=== PATIENT | female | born 1990 | race Caucasian/White ===

== ENCOUNTER 2017-11-16 14:06 | Emergency (ER) | payer OTHER ==
[2016-12-26 11:40] VITALS: BP 154/118
[~2017-11-16 14:06] MED LIST: CYCL10TA2 PO; NAPR-683 PO; TRAM50TA PO
== END 2017-11-16 14:55 | disposition left against medical advice (07) ==
LOC: ER 14:06
DX: M79.89 Other specified soft tissue disorders (principal); Z53.21 Procedure and treatment not carried out due to patient leaving prior to being seen by health care provider

== ENCOUNTER 2017-12-24 13:34 | Emergency (ER) | payer OTHER ==
[~2017-12-24] VITALS: Ht 157.5 cm; Wt 72.6 kg
[2017-12-24 14:25] LABS: BILIRUBIN,URINE NEGATIVE (NEG); CLARITY,URINE CLEAR; COLOR,URINE YELLOW; NITRITE,URINE NEGATIVE (NEG); PROTEIN,URINE NEGATIVE (NEG-TRACE); UROBILINOGEN,URINE 0.2 mg/dL (0.2 mg/dL)
[2017-12-24 14:41] LABS: BACTERIA,URINE FEW /HPF (0-FEW); SQUAMOUS EPITHELIAL CELL,UR MANY /LPF; WBC,URINE OCC /HPF (0-4)
--- NOTE | 2017-12-24 14:46 | PHYS DOC ---
Past Medical History Past Medical History: Hypertension, IBS, Other Additional Past Medical Histor: IBS, ovarian cyst Past Surgical History: Cholecystectomy, , Tubal ligation Alcohol Use: None Drug Use: None Adult General Chief Complaint Chief Complaint: ABDOMINAL PAIN HPI HPI Patient is a 27 year old female who presents with pelvic pain. Patient has been having intermittent stabbing pelvic pain over the last couple of days. She also noticed some yellow vaginal discharge that is not normal. Her last menstrual period was 2 weeks earlier. She does have a prior history of ovarian cysts. She is status post bilateral tubal ligation. No fever or chills. Denies urinary symptoms. No new sexual partners. No back or flank pain. Review of Systems Review of Systems Constitutional: Denies fever Eyes: Denies HENT: Denies Respiratory: Denies SOB Cardiovascular: No additional information GI: Denies abdominal pain : Denies dysuria or hematuria Musculoskeletal: Denies back pain Integument: Denies rash or skin lesions Neurologic: Denies headache All other systems were reviewed and found to be within normal limits, except as documented in this note. Current Medications Current Medications Current Medications Medications (Trade) Dose Ordered Sig/[place] Start Time Stop Time Status Last Admin Dose Admin Acetaminophen/ Butalbital/ Caffeine (Fioricet) 2 tab PRN Q6HRS PRN 12/24/17 15:45 Allergies Allergies Allergies Coded Allergies Type Severity Reaction Last Updated Verified morphine Allergy Intermediate HIVES 09/14/15 Yes Physical Exam Physical Exam Constitutional: Well developed, well nourished, no acute distress, non-toxic appearance HENT: Normocephalic, atraumatic, bilateral external ears normal, oropharynx moist Eyes: PERRLA, EOMI Neck: Normal range of motion, no tenderness Cardiovascular:Heart rate regular rhythm, no murmur Lungs & Thorax: Bilateral breath sounds clear to auscultation Abdomen: Bowel sounds normal, soft, mild tenderness to palpation over the suprapubic area. Skin: Warm, dry, no erythema Back: No tenderness, no CVA tenderness. Neurologic: Alert and oriented X 3 Psychologic: Affect normal Pelvic: normal female external genitalia, cervix is closed. small amt of discharged present in the vault. No cervical motion or adnexal tenderness. No adnexal masses. Current Patient Data Vital Signs Vital Signs Date Time Temp Pulse Resp B/P (MAP) Pulse Ox O2 Delivery O2 Flow Rate FiO2 12/24/17 13:49 98.2 81 20 145/87 (106) 98 Room Air 98.2 Lab Values Laboratory Tests Test 12/24/17 13:50 Urine Collection Type Unknown Urine Color Yellow Urine Clarity Clear Urine pH 6.0 Urine Specific [place] >=1.030 Urine Protein Negative mg/dL (NEG-TRACE) Urine Glucose (UA) Negative mg/dL (NEG) Urine Ketones (Stick) Negative mg/dL (NEG) Urine Blood Moderate (NEG) Urine Nitrite Negative (NEG) Urine Bilirubin Negative (NEG) Urine Urobilinogen Dipstick 0.2 mg/dL (0.2 mg/dL) Urine Leukocyte Esterase Negative (NEG) Urine RBC 1-2 /HPF (0-2) Urine WBC Occ /HPF (0-4) Urine Squamous Epithelial Cells Many /LPF Urine Bacteria Few /HPF (0-FEW) Urine Mucus Mod /LPF Microbiology 12/24/17 Wet Prep - Final, Complete EKG EKG [] Radiology/Procedures Radiology/Procedures [] Course & Med Decision Making Course & Med Decision Making Pertinent Labs and Imaging studies reviewed. (See chart for details) Patient is evaluated for pelvic pain in the emergency department. Pelvic exam was completed and documented above. Examination was accompanied by a female nursing professor. Her wet prep did return positive for clue cells. I discussed with the patient the option of empiric STD treatment but the patient is adamant that she has no concerns about STD based on her sexual history. Also, on her physical exam she had no cervical motion tenderness. Patient opts to have treatment only for bacterial vaginosis at this time. Also based on her physical exam, I did not see an urgent need to perform ultrasound today. No concern for torsion based on physical. Patient is discharged home with Flagyl. She is advised that she will be notified if any of her testing is positive. She is specifically advised to avoid alcohol while taking Flagyl. All of her questions are answered prior to discharge and she is agreeable to the plan of care. Dragon Disclaimer Dragon Disclaimer This electronic medical record was generated, in whole or in part, using a voice recognition dictation system. Departure Departure Referrals: MINNIE DENT (PCP) Scripts Metronidazole (FLAGYL) 500 Mg Tablet 1 TAB PO BID, #14 TAB Prov: JAME TAN DO 12/24/17 JAME TAN DO Dec 24, 2017 14:46
[2017-12-24] MEDS ORDERED: METR500T PO (15:39)
[2017-12-24 15:45] VITALS: BP 140/76
[2017-12-24] MEDS ORDERED: BUTALB/APAP/CAFEIN 50/325/40MG TABLET. PO PRN (15:45)
[2017-12-24] MEDS ORDERED: IBUP-1060 PO (16:19)
[2017-12-24] MEDS ORDERED: HYDR-971 PO (16:19)
[2017-12-25 14:29] LABS: GC PROBE Negative (Negative)
== END 2017-12-24 16:31 | disposition home or self-care (01) ==
LOC: ER 13:34
DX: R10.2 Pelvic and perineal pain (principal); N89.8 Other specified noninflammatory disorders of vagina; I10 Essential (primary) hypertension; K58.9 Irritable bowel syndrome, unspecified; Z90.49 Acquired absence of other specified parts of digestive tract; Z98.51 Tubal ligation status; Z88.5 Allergy status to narcotic agent
CPT/HCPCS: 81001; 81025; 87491; 87591; 99284; Q0111

== ENCOUNTER 2018-01-06 22:38 | Emergency (ER) | payer OTHER ==
[~2018-01-06] VITALS: Ht 157.5 cm; Wt 72.6 kg
[~2018-01-06 22:38] MED LIST changes: +HYDR-3164 PO; +IBUP-1060 PO; +METR500T PO
[2018-01-06 23:03] LABS: BILIRUBIN,URINE NEGATIVE (NEG); CLARITY,URINE TURBID; COLOR,URINE YELLOW; NITRITE,URINE NEGATIVE (NEG); PROTEIN,URINE NEGATIVE (NEG-TRACE); UROBILINOGEN,URINE 0.2 mg/dL (0.2 mg/dL)
[2018-01-06 23:18] LABS: BACTERIA,URINE MODERATE /HPF (0-FEW); SQUAMOUS EPITHELIAL CELL,UR MANY /LPF
[2018-01-06] MEDS ORDERED: HYDROcodone/APAP 5/325MG 1 TAB TABLET PO ONE (23:30)
[2018-01-07] MEDS ORDERED: CIPR250T30 PO (00:28)
[2018-01-07 00:30] VITALS: BP 155/89
--- NOTE | 2018-01-07 05:40 | PHYS DOC ---
Past Medical History Past Medical History: Hypertension, IBS, Other Additional Past Medical Histor: IBS, ovarian cyst Past Surgical History: Cholecystectomy, , Tubal ligation Additional Past Surgical Histo: X 3 Alcohol Use: None Drug Use: None Adult General Chief Complaint Chief Complaint: FLANK PAIN HPI HPI Patient is a 27 year old female with history of recurrent urinary tract infections who presents with right flank pain, urinary frequency urgency past the past 3 days. No fever chills, nausea vomiting sweats. Last menstrual period was 3 weeks ago. No history of kidney stones. No other symptoms or complaints[] Review of Systems Review of Systems Review symptoms as per history of present illness. All other review symptoms are negative. All other systems were reviewed and found to be within normal limits, except as documented in this note. Current Medications Current Medications Current Medications Medications (Trade) Dose Ordered Sig/[place] Start Time Stop Time Status Last Admin Dose Admin Acetaminophen/ Hydrocodone Bitart (Lortab 5/325) 1 tab 1X ONCE 01/06/18 23:30 01/06/18 23:31 DC 01/06/18 23:30 1 TAB Levofloxacin (Levaquin) 500 mg 1X ONCE 01/07/18 00:45 01/07/18 00:45 DC 01/07/18 00:43 500 MG Allergies Allergies Allergies Coded Allergies Type Severity Reaction Last Updated Verified morphine Allergy Intermediate HIVES 09/14/15 Yes Physical Exam Physical Exam Constitutional: Well developed, well nourished, no acute distress, non-toxic appearance. [] HENT: Normocephalic, atraumatic, bilateral external ears normal, oropharynx moist, no oral exudates, nose normal. [] Eyes: PERRLA, EOMI, conjunctiva normal, no discharge. [] Neck: Normal range of motion, no tenderness, supple, no stridor. [] Cardiovascular:Heart rate regular rhythm, no murmur [] Lungs & Thorax: Bilateral breath sounds clear to auscultation [] Abdomen: Bowel sounds normal, soft, no tenderness, no masses, no pulsatile masses. [] Skin: Warm, dry, no erythema, no rash. [] Back: No tenderness, right CVA tenderness. [] Extremities: No tenderness, no cyanosis, no clubbing, ROM intact, no edema. [] Neurologic: Alert and oriented X 3, normal motor function, normal sensory function, no focal deficits noted. [] Psychologic: Affect normal, judgement normal, mood normal. [] Current Patient Data Vital Signs Vital Signs Date Time Temp Pulse Resp B/P (MAP) Pulse Ox O2 Delivery O2 Flow Rate FiO2 01/07/18 00:30 75 155/89 (111) 98 Room Air 01/06/18 23:30 18 01/06/18 22:50 98.7 98.7 Lab Values Laboratory Tests Test 01/06/18 22:41 01/06/18 22:53 Urine Collection Type Unknown Urine Color Yellow Urine Clarity Turbid Urine pH 8.0 Urine Specific [place] 1.015 Urine Protein Negative mg/dL (NEG-TRACE) Urine Glucose (UA) Negative mg/dL (NEG) Urine Ketones (Stick) Negative mg/dL (NEG) Urine Blood Large (NEG) Urine Nitrite Negative (NEG) Urine Bilirubin Negative (NEG) Urine Urobilinogen Dipstick 0.2 mg/dL (0.2 mg/dL) Urine Leukocyte Esterase Moderate (NEG) Urine RBC 1-2 /HPF (0-2) Urine WBC 5-10 /HPF (0-4) Urine Squamous Epithelial Cells Many /LPF Urine Bacteria Moderate /HPF (0-FEW) Urine Mucus Mod /LPF POC Urine HCG, Qualitative Hcg negative (Negative) EKG EKG [] Radiology/Procedures Radiology/Procedures [] Course & Med Decision Making Course & Med Decision Making Pertinent Labs and Imaging studies reviewed. (See chart for details) [Antibiotics given. Recommend increased fluids, continue antibiotics PCP follow- up. Return precautions reviewed.] Dragon Disclaimer Dragon Disclaimer This electronic medical record was generated, in whole or in part, using a voice recognition dictation system. Departure Departure Impression: Primary Impression: Urinary tract infection Disposition: HOME, SELF-CARE Condition: GOOD Patient Instructions: Urinary Tract Infection, [id number] Additional Instructions: Please increase fluids and take antibitoics as directed. Follow up with your PCP in 3-5 days for re-evaluation as needed. Return to the ED if new or worsening symptoms. Scripts Ciprofloxacin Hcl (CIPRO) 250 Mg Tablet 250 MG PO BID for 3 Days, #6 TAB Prov: GEOVANNA NINA DO 01/07/18 GEOVANNA NINA DO Jan 07, 2018 05:40
== END 2018-01-07 00:45 | disposition home or self-care (01) ==
LOC: ER 22:38
DX: N39.0 Urinary tract infection, site not specified (principal); I10 Essential (primary) hypertension; K58.9 Irritable bowel syndrome, unspecified; Z90.49 Acquired absence of other specified parts of digestive tract; Z98.51 Tubal ligation status; Z88.5 Allergy status to narcotic agent
CPT/HCPCS: 81001; 81025; 87086; 99283

== ENCOUNTER 2018-03-21 08:46 | Emergency (ER) | payer OTHER ==
[~2018-03-21] VITALS: Ht 157.5 cm; Wt 72.6 kg
[~2018-03-21 08:46] MED LIST changes: +CIPR250T30 PO
[2018-03-21] MEDS ORDERED: IV NORMAL SALINE 1000ML BAG 1,000 ML IV ONE (09:15)
[2018-03-21] MEDS ORDERED: ONDANSETRON PF 4 MG/2 ML VIAL. IV ONE (09:15)
[2018-03-21] MEDS ORDERED: FAMOTIDINE 20 MG/2 ML VIAL IVP ONE (09:15)
[2018-03-21] MEDS ORDERED: IOHEXOL 300 MG/ML 100ML VIAL. IV ONE (09:30)
[2018-03-21 09:42] LABS: BASO % 1 % (0-3); EOS # 0.5 x10^3/uL (0.0-0.7); EOS % 10 % (0-3); HEMATOCRIT 37.8 % (36.0-47.0); HEMOGLOBIN 12.8 g/dL (12.0-15.5); LYMPH # 2.3 x10^3/uL (1.0-4.8); LYMPH % 44 % (24-48); MEAN CORPUSCULAR HEMOGLOBIN 32 pg (25-35); MEAN CORPUSCULAR HGB CONC 34 g/dL (31-37); MEAN CORPUSCULAR VOLUME 94 fL (79-100); MONO # 0.4 x10^3/uL (0.0-1.1); MONO % 8 % (0-9); NEUT % 38 % (31-73); PLATELET COUNT 225 x10^3/uL (140-400); RED BLOOD COUNT 4.04 x10^6/uL (3.50-5.40); RED CELL DISTRIBUTION WIDTH 13.4 % (11.5-14.5); WHITE BLOOD COUNT 5.4 x10^3/uL (4.0-11.0)
[2018-03-21] MEDS ORDERED: CONTRAST GIVEN. MC PRN (09:45)
[2018-03-21 09:49] LABS: BILIRUBIN,URINE NEGATIVE (NEG); CLARITY,URINE CLEAR; COLOR,URINE YELLOW; NITRITE,URINE NEGATIVE (NEG); PH,URINE 5.5; PROTEIN,URINE NEGATIVE (NEG-TRACE); UROBILINOGEN,URINE 0.2 mg/dL (0.2 mg/dL)
--- NOTE | 2018-03-21 09:57 | PHYS DOC ---
Past Medical History Past Medical History: Hypertension, IBS, Other Additional Past Medical Histor: ovarian cyst Past Surgical History: Cholecystectomy, , Tubal ligation Additional Past Surgical Histo: X 3 Alcohol Use: None Drug Use: None Adult General Chief Complaint Chief Complaint: CHEST PAIN HPI HPI Patient is a 27 year old female who presents with nausea and vomiting yesterday with epigastric sharp pains that come and go. Patient states she has not vomited today and she did keep down water today. She is also having some chest tightness. Patient states that yesterday she did not keep down her labetalol which cause her blood pressure to become very high. Patient states she did keep her labetalol down today. Rating her pain is 7 out of 10. Review of Systems Review of Systems Constitutional: Denies fever or chills [] Eyes: Denies change in visual acuity, redness, or eye pain [] HENT: Denies nasal congestion or sore throat [] Respiratory: Denies cough or shortness of breath [] Cardiovascular: Chest tightness GI: Epigastric abdominal pain, nausea, vomiting, denies bloody stools or diarrhea [] : Denies dysuria or hematuria [] Musculoskeletal: Denies back pain or joint pain [] Integument: Denies rash or skin lesions [] Neurologic: Denies headache, focal weakness or sensory changes [] All other systems were reviewed and found to be within normal limits, except as documented in this note. Current Medications Current Medications Current Medications Medications (Trade) Dose Ordered Sig/[place] Start Time Stop Time Status Last Admin Dose Admin Diphenhydramine HCl (Benadryl) 25 mg 1X ONCE 03/21/18 10:30 03/21/18 10:39 DC 03/21/18 10:32 25 MG Famotidine (Pepcid Vial) 20 mg 1X ONCE 03/21/18 09:15 03/21/18 09:18 DC 03/21/18 09:55 20 MG Info (CONTRAST GIVEN -- Rx MONITORING) 1 each PRN DAILY PRN 03/21/18 09:45 03/23/18 09:44 Iohexol (Omnipaque 300 Mg/ml) 100 ml 1X ONCE 03/21/18 09:30 03/21/18 09:32 DC 03/21/18 10:38 100 ML Ondansetron HCl (Zofran) 4 mg 1X ONCE 03/21/18 09:15 03/21/18 09:18 DC 03/21/18 09:55 4 MG Sodium Chloride 1,000 ml @ 1,000 mls/hr 1X ONCE 03/21/18 09:15 03/21/18 10:14 DC 03/21/18 09:55 1,000 MLS/HR Allergies Allergies Allergies Coded Allergies Type Severity Reaction Last Updated Verified morphine Allergy Intermediate HIVES 09/14/15 Yes Physical Exam Physical Exam Constitutional: Well developed, well nourished, no acute distress, non-toxic appearance. [] HENT: Normocephalic, atraumatic, bilateral external ears normal, oropharynx moist, no oral exudates, nose normal. [] Eyes: PERRLA, EOMI, conjunctiva normal, no discharge. [] Neck: Normal range of motion, no tenderness, supple, no stridor. [] Cardiovascular:Heart rate regular rhythm, no murmur [] Lungs & Thorax: Bilateral breath sounds clear to auscultation [] Abdomen: Bowel sounds normal, soft, epigastric tenderness, no masses, no pulsatile masses. [] Skin: Warm, dry, no erythema, no rash. [] Back: No tenderness, no CVA tenderness. [] Extremities: No tenderness, no cyanosis, no clubbing, ROM intact, no edema. [] Neurologic: Alert and oriented X 3, normal motor function, normal sensory function, no focal deficits noted. [] Psychologic: Affect normal, judgement normal, mood normal. [] Current Patient Data Vital Signs Vital Signs Date Time Temp Pulse Resp B/P (MAP) Pulse Ox O2 Delivery O2 Flow Rate FiO2 03/21/18 08:50 98.6 82 20 131/83 (99) 99 Room Air 98.6 Lab Values Laboratory Tests Test 03/21/18 09:25 03/21/18 09:35 03/21/18 09:38 Urine Collection Type Unknown Urine Color Yellow Urine Clarity Clear Urine pH 5.5 Urine Specific [place] 1.025 Urine Protein Negative mg/dL (NEG-TRACE) Urine Glucose (UA) Negative mg/dL (NEG) Urine Ketones (Stick) Negative mg/dL (NEG) Urine Blood Negative (NEG) Urine Nitrite Negative (NEG) Urine Bilirubin Negative (NEG) Urine Urobilinogen Dipstick 0.2 mg/dL (0.2 mg/dL) Urine Leukocyte Esterase Negative (NEG) Urine RBC 0 /HPF (0-2) Urine WBC Occ /HPF (0-4) Urine Squamous Epithelial Cells Many /LPF Urine Bacteria Few /HPF (0-FEW) Urine Mucus Mod /LPF White Blood Count 5.4 x10^3/uL (4.0-11.0) Red Blood Count 4.04 x10^6/uL (3.50-5.40) Hemoglobin 12.8 g/dL (12.0-15.5) Hematocrit 37.8 % (36.0-47.0) Mean Corpuscular Volume 94 fL (79-100) Mean Corpuscular Hemoglobin 32 pg (25-35) Mean Corpuscular Hemoglobin Concent 34 g/dL (31-37) Red Cell Distribution Width 13.4 % (11.5-14.5) Platelet Count 225 x10^3/uL (140-400) Neutrophils (%) (Auto) 38 % (31-73) Lymphocytes (%) (Auto) 44 % (24-48) Monocytes (%) (Auto) 8 % (0-9) Eosinophils (%) (Auto) 10 % (0-3) H Basophils (%) (Auto) 1 % (0-3) Neutrophils # (Auto) 2.0 x10^3uL (1.8-7.7) Lymphocytes # (Auto) 2.3 x10^3/uL (1.0-4.8) Monocytes # (Auto) 0.4 x10^3/uL (0.0-1.1) Eosinophils # (Auto) 0.5 x10^3/uL (0.0-0.7) Basophils # (Auto) 0.0 x10^3/uL (0.0-0.2) Sodium Level 139 mmol/L (136-145) Potassium Level 3.9 mmol/L (3.5-5.1) Chloride Level 104 mmol/L (98-107) Carbon Dioxide Level 30 mmol/L (21-32) Anion Gap 5 (6-14) L Blood Urea Nitrogen 10 mg/dL (7-20) Creatinine 0.8 mg/dL (0.6-1.0) Estimated GFR (Cockcroft-Gault) 87.4 BUN/Creatinine Ratio 13 (6-20) Glucose Level 114 mg/dL (70-99) H Calcium Level 9.3 mg/dL (8.5-10.1) Total Bilirubin 0.3 mg/dL (0.2-1.0) Aspartate Amino Transferase (AST) 29 U/L (15-37) Alanine Aminotransferase (ALT) 108 U/L (14-59) H Alkaline Phosphatase 66 U/L (46-116) Troponin I Quantitative < 0.017 ng/mL (0.000-0.055) Total Protein 6.8 g/dL (6.4-8.2) Albumin 3.8 g/dL (3.4-5.0) Albumin/Globulin Ratio 1.3 (1.0-1.7) POC Urine HCG, Qualitative Hcg negative (Negative) Laboratory Tests 03/21/18 09:35 Laboratory Tests 03/21/18 09:35 EKG EKG Sinus rhythm and no STEMI Interpretation Time: [address] Becerril Radiology/Procedures Radiology/Procedures Chest x-ray, CT abdomen pelvis[] Impressions: [address] [id number] IMAGING REPORT Signed PATIENT: DONAL LEE ACCOUNT: [id number] : 1990 LOCATION: ER AGE: 27 SEX: F EXAM STATUS: REG ER ORD. PHYSICIAN: VIRGINIA YANES APRN REASON: chest tightness PROCEDURE: CHEST PA & LATERAL Chest, PA and Lateral: Technique: PA and lateral views of the chest were obtained. History: Chest tightness. Comparison: 06/25/2011. Findings: The heart and pulmonary vasculature appear within normal limits. The lungs are clear. The pleural margins are clear. Impression: No acute chest process is seen. Electronically signed by: Villa Mireles MD (03/21/2018 10:05 AM) [place] [id number] DICTATED and SIGNED BY: VILLA MIRELES MD DATE: 03/21/[address] [id number] IMAGING REPORT Signed PATIENT: DONAL LEE ACCOUNT: [id number] : 1990 LOCATION: ER AGE: 27 SEX: F EXAM STATUS: REG ER ORD. PHYSICIAN: VIRGINIA YANES APRN REASON: epigastric pain PROCEDURE: CT ABD PELV W/ IV CONTRST ONLY Examination: CT of the abdomen pelvis with IV contrast HISTORY: History of epigastric pain COMPARISON: None available TECHNIQUE: Axial CT images of the abdomen pelvis were performed with IV contrast. Coronal and sagittal reformats are performed. Exposure: One or more of the following individualized dose reduction techniques were utilized for this examination: 1. Automated exposure control 2. Adjustment of the mA and/or kV according to patient size 3. Use of iterative reconstruction technique FINDINGS: The bibasilar lungs are clear. No evidence of free air identified in the abdomen. The liver, spleen, adrenals grossly appears unremarkable. Cholecystectomy clips identified. The stomach is mildly distended. The visualized pancreas grossly appears unremarkable. The small bowel is nondilated. Feces and gas noted in the colon. The appendix is normal. The bilateral kidneys enhance symmetrically. The caliber of the aorta grossly appears unremarkable. Mild degenerative changes lumbar spine. IMPRESSION: 1. No acute abdominal findings. 2. Cholecystectomy changes. Electronically signed by: Villa Mireles MD (03/21/2018 11:38 AM) [id number] DICTATED and SIGNED BY: VILLA MIRELES MD DATE: 03/21/18 1125 Course & Med Decision Making Course & Med Decision Making Patient is a 27 year old female who presents with nausea and vomiting yesterday with epigastric sharp pains that come and go. Patient states she has not vomited today and she did keep down water today. She is also having some chest tightness. Patient states that yesterday she did not keep down her labetalol which cause her blood pressure to become very high. Patient states she did keep her labetalol down today. Denies soa. Rating her pain is 7 out of 10. Alert and Oriented. Skin pink warm and dry. Mucous membranes are moist. Ambulatory with a steady gait. Vital signs are 73 heart rate, 131/83, 100% on room air, 16 respirations. Patient's abdomen is soft but tender at the epigastric area. Patient denies fever, area or cough. She has no extremity swelling. No calf pains. Patient states she does have a slight headache. Afebrile. She denies dysuria or vaginal discharge or vaginal bleeding. Chest x-ray shows no acute findings. CT scan showed no acute findings. Blood work unremarkable. Vital signs remain within normal limits. Patient to follow- up with her primary care doctor. She'll be given nausea medications. Patient likely has a gastritis. Dragon Disclaimer Dragon Disclaimer This electronic medical record was generated, in whole or in part, using a voice recognition dictation system. Departure Departure Impression: Primary Impression: Gastritis Disposition: HOME, SELF-CARE Condition: STABLE Referrals: MINNIE DENT (PCP) Patient Instructions: Gastritis, Adult Additional Instructions: Follow-up her primary care doctor. Take medications as prescribed. Drink plenty of fluids. Scripts Ondansetron (ONDANSETRON ODT) 4 Mg Tab.rapdis 4 MG PO TID PRN for NAUSEA/VOMITING, #20 TAB Prov: VIRGINIA YANES DOPSTER 03/21/18 Famotidine (PEPCID) 20 Mg Tablet 20 MG PO BID, #20 TAB Prov: VIRGINIA YANES DOPSTER 03/21/18 Problem Qualifiers Primary Impression: Gastritis Gastritis type: unspecified gastritis Chronicity: unspecified Gastritis bleeding: without bleeding Qualified Codes: K29.70 - Gastritis, unspecified, without bleeding VIRGINIA YANES DOPSTER Mar 21, 2018 09:57
[2018-03-21 10:02] LABS: CALCIUM 9.3 mg/dL (8.5-10.1); CREATININE 0.8 mg/dL (0.6-1.0); GFR 87.4; POTASSIUM 3.9 mmol/L (3.5-5.1)
[2018-03-21 10:08] LABS: ALBUMIN 3.8 g/dL (3.4-5.0); ALBUMIN/GLOBULIN RATIO 1.3 (1.0-1.7); TOTAL BILIRUBIN 0.3 mg/dL (0.2-1.0); TOTAL PROTEIN 6.8 g/dL (6.4-8.2)
--- NOTE | 2018-03-21 10:10 | RAD ---
Chest, PA and Lateral: Technique: PA and lateral views of the chest were obtained. History: Chest tightness. Comparison: 06/25/2011. Findings: The heart and pulmonary vasculature appear within normal limits. The lungs are clear. The pleural margins are clear. Impression: No acute chest process is seen. Electronically signed by: Villa Mireles MD (03/21/2018 10:05 AM) [place] [id number]
[2018-03-21 10:16] LABS: BACTERIA,URINE FEW /HPF (0-FEW); RBC,URINE 0 /HPF (0-2); SQUAMOUS EPITHELIAL CELL,UR MANY /LPF; WBC,URINE OCC /HPF (0-4)
[2018-03-21] MEDS ORDERED: diphenhydrAMINE HCL 25 MG CAPSULE PO ONE (10:30)
--- NOTE | 2018-03-21 11:20 | EKG ---
[facility] [address] [place] [address] Test Date: 2018-03-21 Test Time: 08:58:55 Pat Name: DONAL LEE Department: Room: Gender: F [employer]: : 1990 Requested By: VIRGINIA YANES Order Number: [id number] Reading MD: Measurements Intervals [place] Rate: 73 P: 0 ND: 144 QRS: 54 QRSD: 82 T: 26 QT: 408 QTc: 453 Interpretive Statements SINUS RHYTHM NON SPECIFIC T ABNORMALITY BORDERLINE ECG No previous ECG available for comparison
--- NOTE | 2018-03-21 11:42 | RAD ---
Examination: CT of the abdomen pelvis with IV contrast HISTORY: History of epigastric pain COMPARISON: None available TECHNIQUE: Axial CT images of the abdomen pelvis were performed with IV contrast. Coronal and sagittal reformats are performed. Exposure: One or more of the following individualized dose reduction techniques were utilized for this examination: 1. Automated exposure control 2. Adjustment of the mA and/or kV according to patient size 3. Use of iterative reconstruction technique FINDINGS: The bibasilar lungs are clear. No evidence of free air identified in the abdomen. The liver, spleen, adrenals grossly appears unremarkable. Cholecystectomy clips identified. The stomach is mildly distended. The visualized pancreas grossly appears unremarkable. The small bowel is nondilated. Feces and gas noted in the colon. The appendix is normal. The bilateral kidneys enhance symmetrically. The caliber of the aorta grossly appears unremarkable. Mild degenerative changes lumbar spine. IMPRESSION: 1. No acute abdominal findings. 2. Cholecystectomy changes. Electronically signed by: Villa Mireles MD (03/21/2018 11:38 AM) [place] [id number]
[2018-03-21] MEDS ORDERED: ONDA4TAB12 PO (12:03)
[2018-03-21] MEDS ORDERED: FAMO-63 PO (12:03)
[2018-03-21 12:18] VITALS: BP 142/66
== END 2018-03-21 12:20 | disposition home or self-care (01) ==
LOC: ER 08:46
DX: K29.70 Gastritis, unspecified, without bleeding (principal); R07.89 Other chest pain; I10 Essential (primary) hypertension; Z90.49 Acquired absence of other specified parts of digestive tract; Z98.890 Other specified postprocedural states; Z98.51 Tubal ligation status; Z88.5 Allergy status to narcotic agent
CPT/HCPCS: 36415; 71046; 74177; 80053; 81001; 81025; 84484; 85025; 93005; 96361; 96374; 96375; 99284; J2405; J3490; J7030; Q0163; Q9967

== ENCOUNTER 2018-05-03 16:33 | Emergency (ER) | payer OTHER ==
[~2018-05-03] VITALS: Ht 157.5 cm; Wt 70.3 kg
[~2018-05-03 16:33] MED LIST changes: +FAMO-63 PO; +ONDA4TAB12 PO
[2018-05-03] MEDS ORDERED: IV NORMAL SALINE 1000ML BAG 1,000 ML IV ONE (16:45)
[2018-05-03 16:52] LABS: BASO % 0 % (0-3); EOS # 0.1 x10^3/uL (0.0-0.7); EOS % 1 % (0-3); HEMATOCRIT 41.8 % (36.0-47.0); HEMOGLOBIN 14.1 g/dL (12.0-15.5); LYMPH # 2.3 x10^3/uL (1.0-4.8); LYMPH % 30 % (24-48); MEAN CORPUSCULAR HEMOGLOBIN 31 pg (25-35); MEAN CORPUSCULAR HGB CONC 34 g/dL (31-37); MEAN CORPUSCULAR VOLUME 93 fL (79-100); MONO # 0.5 x10^3/uL (0.0-1.1); MONO % 7 % (0-9); NEUT # 4.7 x10^3uL (1.8-7.7); NEUT % 61 % (31-73); PLATELET COUNT 351 x10^3/uL (140-400); RED BLOOD COUNT 4.51 x10^6/uL (3.50-5.40); WHITE BLOOD COUNT 7.7 x10^3/uL (4.0-11.0)
[2018-05-03 17:11] LABS: CALCIUM 9.9 mg/dL (8.5-10.1); CREATININE 0.9 mg/dL (0.6-1.0); GFR 76.3; POTASSIUM 3.9 mmol/L (3.5-5.1)
[2018-05-03 17:17] LABS: ALBUMIN 4.3 g/dL (3.4-5.0); ALBUMIN/GLOBULIN RATIO 1.2 (1.0-1.7); TOTAL BILIRUBIN 0.6 mg/dL (0.2-1.0)
--- NOTE | 2018-05-03 17:21 | RAD ---
EXAM: AP View of the chest DATE: 05/03/2018 4:43 PM INDICATION: Shortness of air, RAPID HEART RATE COMPARISON: 03/21/2018 FINDINGS: The heart is not enlarged. Mediastinal and hilar contours are normal. No focal parenchymal airspace opacity. No pleural effusion or pneumothorax. IMPRESSION: 1. No radiographic evidence for acute cardiopulmonary process. Electronically signed by: Steve Croft MD (05/03/2018 5:18 PM) [facility]
[2018-05-03 17:25] LABS: PROTHROMBIN TIME PATIENT 14.5 SEC (11.7-14.0)
[2018-05-03 17:30] VITALS: BP 149/91
[2018-05-03 17:31] LABS: D-DIMER < 0.27 ug/mlFEU (0.00-0.50)
[2018-05-03] MEDS ORDERED: LABE100T5 PO (17:44)
[2018-05-03] MEDS ORDERED: LORA-434 PO (17:44)
--- NOTE | 2018-05-03 17:55 | PHYS DOC ---
Past Medical History Past Medical History: Hypertension, IBS, Other Additional Past Medical Histor: ovarian cyst Past Surgical History: Cholecystectomy, , Tubal ligation Additional Past Surgical Histo: X 3 Alcohol Use: None Drug Use: None Adult General Chief Complaint Chief Complaint: RAPID HEART RATE HPI HPI Patient is a 27 year old female presents with shortness of breath palpitations numbness of the face onset a couple hours ago while at rest does have a history of anxiety as well as high blood pressure but has never had this severe symptoms. Patient had been on labetalol in the past but has been off it ran out no recent fever does describe center of the chest pressure and palpitations. The heart is racing Review of Systems Review of Systems Constitutional: Denies fever or chills [] Eyes: Denies change in visual acuity, redness, or eye pain [] HENT: Denies nasal congestion or sore throat [] Does report shortness of breath GI: Denies abdominal pain, nausea, vomiting, bloody stools or diarrhea [] : Denies dysuria or hematuria [] Musculoskeletal: Denies back pain or joint pain [] Integument: Denies rash or skin lesions [] Neurologic: Denies headache, focal weakness or sensory changes [] Endocrine: Denies polyuria or polydipsia [] All other systems were reviewed and found to be within normal limits, except as documented in this note. Current Medications Current Medications Current Medications Medications (Trade) Dose Ordered Sig/[place] Start Time Stop Time Status Last Admin Dose Admin Lorazepam (Ativan) 1 mg 1X ONCE 05/03/18 16:45 05/03/18 16:46 DC 05/03/18 16:51 1 MG Sodium Chloride 1,000 ml @ 1,000 mls/hr 1X ONCE 05/03/18 16:45 05/03/18 17:44 DC 05/03/18 16:49 1,000 MLS/HR Allergies Allergies Allergies Coded Allergies Type Severity Reaction Last Updated Verified No Known Drug Allergies 05/03/18 No Physical Exam Physical Exam Constitutional: Well developed, mild to moderate distress HENT: Normocephalic, atraumatic, bilateral external ears normal, oropharynx moist, no oral exudates, nose normal. [] Eyes: PERRLA, EOMI, conjunctiva normal, no discharge. [] Neck: Normal range of motion, no tenderness, supple, no stridor. [] Cardiovascular tachycardic but regular no murmurs Lungs & Thorax: Bilateral breath sounds clear to auscultation []patient is holding the chest eyes are closed appears anxious increased respiratory effort Abdomen: Bowel sounds normal, soft, no tenderness, no masses, no pulsatile masses. [] Skin: Warm, dry, no erythema, no rash. [] Back: No tenderness, no CVA tenderness. [] Extremities: No tenderness, no cyanosis, no clubbing, ROM intact, no edema. [] Neurologic: Alert and oriented X 3, normal motor function, normal sensory function, no focal deficits noted. [] Psychologic: Affect normal, judgement normal, mood significant anxiety noted Current Patient Data Vital Signs Vital Signs Date Time Temp Pulse Resp B/P (MAP) Pulse Ox O2 Delivery O2 Flow Rate FiO2 05/03/18 17:30 100 22 149/91 (110) 99 Nasal Cannula 2.0 05/03/18 17:29 98.0 98.0 Lab Values Laboratory Tests Test 05/03/18 16:40 05/03/18 16:57 White Blood Count 7.7 x10^3/uL (4.0-11.0) Red Blood Count 4.51 x10^6/uL (3.50-5.40) Hemoglobin 14.1 g/dL (12.0-15.5) Hematocrit 41.8 % (36.0-47.0) Mean Corpuscular Volume 93 fL (79-100) Mean Corpuscular Hemoglobin 31 pg (25-35) Mean Corpuscular Hemoglobin Concent 34 g/dL (31-37) Red Cell Distribution Width 13.0 % (11.5-14.5) Platelet Count 351 x10^3/uL (140-400) Neutrophils (%) (Auto) 61 % (31-73) Lymphocytes (%) (Auto) 30 % (24-48) Monocytes (%) (Auto) 7 % (0-9) Eosinophils (%) (Auto) 1 % (0-3) Basophils (%) (Auto) 0 % (0-3) Neutrophils # (Auto) 4.7 x10^3uL (1.8-7.7) Lymphocytes # (Auto) 2.3 x10^3/uL (1.0-4.8) Monocytes # (Auto) 0.5 x10^3/uL (0.0-1.1) Eosinophils # (Auto) 0.1 x10^3/uL (0.0-0.7) Basophils # (Auto) 0.0 x10^3/uL (0.0-0.2) Maternal Serum HCG Beta Subunit 1 mIU/mL (0-5) Sodium Level 141 mmol/L (136-145) Potassium Level 3.9 mmol/L (3.5-5.1) Chloride Level 101 mmol/L (98-107) Carbon Dioxide Level 20 mmol/L (21-32) L Anion Gap 20 (6-14) H Blood Urea Nitrogen 8 mg/dL (7-20) Creatinine 0.9 mg/dL (0.6-1.0) Estimated GFR (Cockcroft-Gault) 76.3 BUN/Creatinine Ratio 9 (6-20) Glucose Level 161 mg/dL (70-99) H Calcium Level 9.9 mg/dL (8.5-10.1) Total Bilirubin 0.6 mg/dL (0.2-1.0) Aspartate Amino Transferase (AST) 19 U/L (15-37) Alanine Aminotransferase (ALT) 20 U/L (14-59) Alkaline Phosphatase 49 U/L (46-116) Troponin I Quantitative < 0.017 ng/mL (0.000-0.055) CV-Red-C-Type Natriuretic Peptide 67 pg/mL (0-124) Total Protein 8.0 g/dL (6.4-8.2) Albumin 4.3 g/dL (3.4-5.0) Albumin/Globulin Ratio 1.2 (1.0-1.7) Prothrombin Time 14.5 SEC (11.7-14.0) H Prothrombin Time INR 1.2 (0.8-1.1) H D-Dimer (Alyssia) < 0.27 ug/mlFEU Laboratory Tests 05/03/18 16:40 Laboratory Tests 05/03/18 16:40 EKG EKG []Poor baseline probable sinus tachycardia rate of 152 I do see P waves it is regular it is narrow complex interpreted by me time of encounter no STEMI Radiology/Procedures Radiology/Procedures [] Impressions: Chest x-ray negative acute Course & Med Decision Making Course & Med Decision Making Pertinent Labs and Imaging studies reviewed. (See chart for details) []27-year-old female with history of anxiety as well as high blood pressure presenting with palpitations shortness of breath clinical picture is overall most consistent with a panic attack. Patient was given Ativan with resolution of the symptoms. On reevaluation at 5:50 PM the heart rate was 90 she was alert and awake and felt a lot better. We did a workup it was negative d-dimer negative troponin negative chest x-ray negative patient was given a labetalol per prescription as well as Ativan as well reassurance was provided discharge with the partner. Dragon Disclaimer Dragon Disclaimer This electronic medical record was generated, in whole or in part, using a voice recognition dictation system. Departure Departure Impression: Primary Impression: Elevated blood pressure reading Additional Impression: Anxiety Disposition: 01 HOME, SELF-CARE Condition: STABLE Patient Instructions: Anxiety and Panic Attacks, [id number] Scripts Labetalol Hcl (LABETALOL HCL) 100 Mg Tablet 1 TAB PO BID, #30 TAB 0 Refills Prov: CRICKET KINNEY MD 05/03/18 Lorazepam (ATIVAN) 1 Mg Tablet 1 MG PO BID, #15 TAB Prov: CRICKET KINNEY MD 05/03/18 Problem Qualifiers CRICKET KINNEY MD May 03, 2018 17:55
[2018-05-03] MEDS ORDERED: KETOROLAC 15 MG/ML VIAL. IV ONE (18:15)
[2018-05-03 18:42] LABS: BILIRUBIN,URINE NEGATIVE (NEG); CLARITY,URINE CLEAR; COLOR,URINE YELLOW; NITRITE,URINE NEGATIVE (NEG); PH,URINE 7.5; PROTEIN,URINE NEGATIVE (NEG-TRACE); UROBILINOGEN,URINE 0.2 mg/dL (0.2 mg/dL)
[2018-05-03 18:57] LABS: BACTERIA,URINE FEW /HPF (0-FEW); RBC,URINE 0 /HPF (0-2); SQUAMOUS EPITHELIAL CELL,UR OCC /LPF
--- NOTE | 2018-05-04 17:10 | EKG ---
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
== END 2018-05-03 19:15 | disposition home or self-care (01) ==
LOC: ER 16:33
DX: I10 Essential (primary) hypertension (principal); F41.9 Anxiety disorder, unspecified; R10.32 Left lower quadrant pain; K58.9 Irritable bowel syndrome, unspecified; Z90.49 Acquired absence of other specified parts of digestive tract; Z98.51 Tubal ligation status
CPT/HCPCS: 36415; 71045; 80053; 81001; 83880; 84484; 84702; 85025; 85379; 85610; 93005; 96374; 99284; J2060; J7030

== ENCOUNTER 2018-08-06 08:23 | Emergency (ER) | payer SELFPAY ==
[~2018-08-06] VITALS: Ht 157.5 cm; Wt 70.3 kg
[~2018-08-06 08:23] MED LIST changes: +LABE100T5 PO; +LORA-434 PO
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
[2018-08-06] MEDS ORDERED: predniSONE 10 MG TABLET PO ONE (09:30)
[2018-08-06] MEDS ORDERED: METHOCARBAMOL 750 MG TABLET PO ONE (09:30)
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
[2018-08-06] MEDS ORDERED: PRED50TA PO (10:39)
[2018-08-06] MEDS ORDERED: METH-38 PO (10:39)
[2018-08-06 11:00] VITALS: BP 145/97
== END 2018-08-06 11:00 | disposition home or self-care (01) ==
LOC: ER 08:23
DX: M25.572 Pain in left ankle and joints of left foot (principal); M79.605 Pain in left leg; M25.552 Pain in left hip; M25.562 Pain in left knee; I10 Essential (primary) hypertension; Z90.49 Acquired absence of other specified parts of digestive tract; Z98.890 Other specified postprocedural states; Z98.51 Tubal ligation status; Z88.5 Allergy status to narcotic agent; Z88.8 Allergy status to other drugs, medicaments and biological substances
CPT/HCPCS: 73502; 73562; 73610; 81025; 99284; J7512

== ENCOUNTER 2019-01-19 12:04 | Emergency (ER) | payer SELFPAY ==
[~2019-01-19] VITALS: Ht 167.6 cm; Wt 70.3 kg
[~2019-01-19 12:04] MED LIST changes: +METH-38 PO; +PRED50TA PO
[2019-01-19] MEDS ORDERED: ACETAMINOPHEN 500 MG TABLET PO ONE (12:30)
[2019-01-19] MEDS ORDERED: IV NORMAL SALINE 1000ML BAG 1,000 ML IV ONE (12:30)
--- NOTE | 2019-01-19 12:30 | PHYS DOC ---
Past Medical History Past Medical History: Hypertension, IBS, Other Additional Past Medical Histor: ovarian cyst Past Surgical History: Cholecystectomy, , Tubal ligation Additional Past Surgical Histo: X 3 Alcohol Use: None Drug Use: None Adult General Chief Complaint Chief Complaint: ALLERGIC REACTION HPI HPI Patient is a 28-year-old female who presents to the emergency department for evaluation. She was donating plasma, and states that the needle had to be adjusted numerous times to begin getting flow, at which time she began experiencing generalized shaking, although she was awake and talkative throughout the episode. Soon after she reports developing a generalized headache, and developed some hives, and reported to EMS that she was having trouble breathing, prompting her to get 50 mg of Benadryl IM, and 0.3 mg of epinephrine subcutaneously. She states the episode was not typical of her seizures. She is supposed be taking a seizure medicine, although she is uncertain which medication, as she has been out for numerous months, citing the lack of insurance. She reports a history of anxiety as well. There are no alleviating or exacerbating factors to her symptoms otherwise. Review of Systems Review of Systems Constitutional: Denies fever or chills [] Eyes: Denies change in visual acuity, redness, or eye pain [] HENT: Denies nasal congestion or sore throat [] Respiratory: Denies cough or shortness of breath [] Cardiovascular: The patient denies any shortness of breath, chest pain, palpitations, or orthopnea [] GI: Denies abdominal pain, nausea, vomiting, bloody stools or diarrhea [] : Denies dysuria or hematuria. Denies , currently on menses [] Musculoskeletal: Denies back pain or joint pain [] Integument: Denies rash or skin lesions [] Neurologic: Denies focal weakness or sensory changes [] Endocrine: Denies polyuria or polydipsia [] All other systems were reviewed and found to be within normal limits, except as documented in this note. Current Medications Current Medications Current Medications Medications (Trade) Dose Ordered Sig/[place] Start Time Stop Time Status Last Admin Dose Admin Acetaminophen (Tylenol) 1,000 mg 1X ONCE 01/19/19 12:30 01/19/19 12:31 DC 01/19/19 13:05 1,000 MG Lorazepam (Ativan Inj) 1 mg 1X ONCE 01/19/19 12:30 121/19 12:31 DC 01/19/19 13:06 1 MG Sodium Chloride 1,000 ml @ 1,000 mls/hr 1X ONCE 01/19/19 12:30 01/19/19 13:29 DC 01/19/19 13:06 1,000 MLS/HR Allergies Allergies Allergies Coded Allergies Type Severity Reaction Last Updated Verified ketorolac Allergy Intermediate 05/03/18 Yes morphine Allergy Intermediate 05/03/18 Yes Physical Exam Physical Exam PHYSICAL EXAM: CONSTITUTIONAL: Well developed, well nourished HEAD: normocephalic, atraumatic EENT: PERRL, EOMI. Conjunctivae normal color, sclerae non-icteric; moist mucous membranes. The airway is patent. NECK: Supple, non-tender; no meningismus. LUNGS: Lungs CTA, breathing even and unlabored. Normal air movement. HEART: Regular rate and rhythm, no murmur CHEST: No deformity; non-tender ABDOMEN: The abdomen is soft, and non-tender, no masses or bruits. EXTREM: Normal ROM; no deformity, no calf tenderness. Normal pulses palpable in all extremities. There is no pedal edema. SKIN: No rash; no diaphoresis. No hives are noted. NEURO: Alert; normal speech and cognition; CN's grossly intact; strength grossly intact without focal deficit. BACK: No CVA TTP. Current Patient Data Vital Signs Vital Signs Date Time Temp Pulse Resp B/P (MAP) Pulse Ox O2 Delivery O2 Flow Rate FiO2 01/19/19 13:12 92 14 152/84 (106) 99 Room Air 01/19/19 12:10 98.1 98.1 Lab Values Laboratory Tests Test 01/19/19 13:20 White Blood Count 7.2 x10^3/uL (4.0-11.0) Red Blood Count 4.70 x10^6/uL (3.50-5.40) Hemoglobin 14.5 g/dL (12.0-15.5) Hematocrit 44.0 % (36.0-47.0) Mean Corpuscular Volume 94 fL (79-100) Mean Corpuscular Hemoglobin 31 pg (25-35) Mean Corpuscular Hemoglobin Concent 33 g/dL (31-37) Red Cell Distribution Width 13.9 % (11.5-14.5) Platelet Count 314 x10^3/uL (140-400) Neutrophils (%) (Auto) 65 % (31-73) Lymphocytes (%) (Auto) 28 % (24-48) Monocytes (%) (Auto) 6 % (0-9) Eosinophils (%) (Auto) 1 % (0-3) Basophils (%) (Auto) 0 % (0-3) Neutrophils # (Auto) 4.7 x10^3/uL (1.8-7.7) Lymphocytes # (Auto) 2.0 x10^3/uL (1.0-4.8) Monocytes # (Auto) 0.4 x10^3/uL (0.0-1.1) Eosinophils # (Auto) 0.0 x10^3/uL (0.0-0.7) Basophils # (Auto) 0.0 x10^3/uL (0.0-0.2) Sodium Level 143 mmol/L (136-145) Potassium Level 3.7 mmol/L (3.5-5.1) Chloride Level 105 mmol/L (98-107) Carbon Dioxide Level 26 mmol/L (21-32) Anion Gap 12 (6-14) Blood Urea Nitrogen 16 mg/dL (7-20) Creatinine 0.9 mg/dL (0.6-1.0) Estimated GFR (Cockcroft-Gault) 75.7 BUN/Creatinine Ratio 18 (6-20) Glucose Level 137 mg/dL (70-99) H Calcium Level 9.6 mg/dL (8.5-10.1) Total Bilirubin 0.7 mg/dL (0.2-1.0) Aspartate Amino Transferase (AST) 14 U/L (15-37) L Alanine Aminotransferase (ALT) 20 U/L (14-59) Alkaline Phosphatase 54 U/L (46-116) Total Protein 7.6 g/dL (6.4-8.2) Albumin 4.4 g/dL (3.4-5.0) Albumin/Globulin Ratio 1.4 (1.0-1.7) Thyroid Stimulating Hormone (TSH) 1.103 uIU/mL (0.358-3.74) Free Thyroxine 1.13 ng/dL (0.76-1.46) Laboratory Tests 01/19/19 13:20 Laboratory Tests 01/19/19 13:20 EKG EKG [] Radiology/Procedures Radiology/Procedures [] Course & Med Decision Making Course & Med Decision Making Pertinent Lab studies reviewed. (See chart for details) [] 2:10 PM: The patient's condition remains stable. She still reports a mild headache. I discussed test results at this time and we discussed further evaluation of her headache, including CT and possible lumbar puncture, although the patient declines further evaluation at this time, she states that her symptoms she feels are more likely due to stress from the situation. I discussed importance of close outpatient follow-up and return precautions in detail. I'm doubtful that she had a true allergic reaction. The exact etiology of her symptoms is unknown, although anxiety/panic attack and not epileptic seizure, as well as atypical epileptic seizure are all on the differential. The patient is uncertain which seizure medications she takes, and was referred to neurology for further outpatient evaluation at this time. She will be given a seizure medication as I am doubtful that this was an epileptic seizure. Patient has a history of hypertension but states she has not taken her blood pressure medication today. I encouraged her to continue to take her blood pressure medication and follow-up with her primary care provider. Dragon Disclaimer Dragon Disclaimer This electronic medical record was generated, in whole or in part, using a voice recognition dictation system. Departure Departure Impression: Primary Impression: Seizure-like activity Disposition: 01 HOME, SELF-CARE Condition: STABLE Referrals: MINNIE DENT (PCP) SANDRA SANCHEZ MD Patient Instructions: Anxiety and Panic Attacks, General Headache Without Cause, Nonepileptic Seizures, Seizure, Adult Scripts Diclofenac Sodium (DICLOFENAC SODIUM) 50 Mg Tablet.dr 1 TAB PO BID, #20 TAB 0 Refills Prov: ADIA OMER MD 01/19/19 ADIA OMER MD Jan 19, 2019 12:30
[2019-01-19 13:12] VITALS: BP 152/84
[2019-01-19 13:25] LABS: BASO % 0 % (0-3); EOS % 1 % (0-3); HEMOGLOBIN 14.5 g/dL (12.0-15.5); LYMPH % 28 % (24-48); MEAN CORPUSCULAR HEMOGLOBIN 31 pg (25-35); MEAN CORPUSCULAR HGB CONC 33 g/dL (31-37); MEAN CORPUSCULAR VOLUME 94 fL (79-100); MONO # 0.4 x10^3/uL (0.0-1.1); MONO % 6 % (0-9); NEUT # 4.7 x10^3/uL (1.8-7.7); NEUT % 65 % (31-73); PLATELET COUNT 314 x10^3/uL (140-400); RED CELL DISTRIBUTION WIDTH 13.9 % (11.5-14.5); WHITE BLOOD COUNT 7.2 x10^3/uL (4.0-11.0)
[2019-01-19 13:37] LABS: CALCIUM 9.6 mg/dL (8.5-10.1); CREATININE 0.9 mg/dL (0.6-1.0); GFR 75.7; POTASSIUM 3.7 mmol/L (3.5-5.1)
[2019-01-19 13:43] LABS: ALBUMIN 4.4 g/dL (3.4-5.0); ALBUMIN/GLOBULIN RATIO 1.4 (1.0-1.7); TOTAL BILIRUBIN 0.7 mg/dL (0.2-1.0); TOTAL PROTEIN 7.6 g/dL (6.4-8.2)
[2019-01-19 13:54] LABS: FREE T4 1.13 ng/dL (0.76-1.46); THYROID STIM HORMONE (TSH) 1.103 uIU/mL (0.358-3.74)
[2019-01-19] MEDS ORDERED: DICL50TA4 PO (14:14)
[2019-01-19] MEDS ORDERED: IBUPROFEN 200 MG TABLET. PO ONE (14:15)
== END 2019-01-19 14:30 | disposition home or self-care (01) ==
LOC: ER 12:04
DX: R56.9 Unspecified convulsions (principal); I10 Essential (primary) hypertension; K58.9 Irritable bowel syndrome, unspecified; Z90.49 Acquired absence of other specified parts of digestive tract; Z98.890 Other specified postprocedural states; Z98.51 Tubal ligation status; Z88.6 Allergy status to analgesic agent
CPT/HCPCS: 36415; 80053; 84439; 84443; 85025; 96374; 99284; J2060; J7030

== ENCOUNTER 2019-03-08 09:31 | Emergency (ER) | payer SELFPAY ==
[~2019-03-08 09:31] MED LIST changes: +DICL50TA4 PO
[2019-03-08] MEDS ORDERED: IV NORMAL SALINE 1000ML BAG 1,000 ML IV SCH (09:47)
--- NOTE | 2019-03-08 09:50 | PHYS DOC ---
Past Medical History Past Medical History: Hypertension, IBS, Seizure, Other Additional Past Medical Histor: ovarian cyst Past Surgical History: Cholecystectomy, , Tubal ligation Additional Past Surgical Histo: X 3 Alcohol Use: None Drug Use: None Adult General Chief Complaint Chief Complaint: ABDOMINAL PAIN HPI HPI Patient is a 28-year-old female who presents with complaint of right lower abdominal pain that started this morning. Patient states that she was starting to have some abdominal discomfort yesterday but primarily just had some nausea with vomiting and little diarrhea. She states that this morning the pain is gotten a lot worse and rates at an 8 out of 10. She describes pain as stabbing and states it radiates into her back. She does indicate that pain is worsened if she tries to lie down flat or when she gets up and walks. She states that she is having been hunching over and hold her abdomen when she walks. Patient states that she also has decreased appetite today. She denies any fever. She states that nothing is improving her symptoms.[] Review of Systems Review of Systems Constitutional: Denies fever or chills [] Respiratory: Denies cough or shortness of breath [] Cardiovascular: No additional information not addressed in HPI [] GI: Complains of right lower abdominal pain with nausea, vomiting and diarrhea [] : Denies dysuria or hematuria [] Integument: Denies rash or skin lesions [] All other systems were reviewed and found to be within normal limits, except as documented in this note. Current Medications Current Medications Current Medications Medications (Trade) Dose Ordered Sig/[place] Start Time Stop Time Status Last Admin Dose Admin Fentanyl Citrate (Fentanyl 2ml Vial) 50 mcg PRN Q15MIN PRN 03/08/19 10:00 03/09/19 09:59 03/08/19 11:04 50 MCG Info (CONTRAST GIVEN -- Rx MONITORING) 1 each PRN DAILY PRN 03/08/19 10:45 03/10/19 10:44 Iohexol (Omnipaque 300 Mg/ml) 75 ml 1X ONCE 03/08/19 10:45 03/08/19 10:46 DC 03/08/19 10:54 75 ML Ondansetron HCl (Zofran) 4 mg 1X ONCE 03/08/19 10:00 03/08/19 10:01 DC 03/08/19 10:07 4 MG Sodium Chloride 1,000 ml @ 1,000 mls/hr Q1H 03/08/19 09:47 03/08/19 10:46 DC 03/08/19 10:07 1,000 MLS/HR Allergies Allergies Allergies Coded Allergies Type Severity Reaction Last Updated Verified ketorolac Allergy Intermediate 03/08/19 Yes morphine Allergy Intermediate 03/08/19 Yes Physical Exam Physical Exam Constitutional: Well developed, well nourished, in mild distress, non-toxic appearance. [] HENT: Normocephalic, atraumatic, bilateral external ears normal, oropharynx moist, no oral exudates, nose normal. [] Eyes: PERRLA, EOMI, conjunctiva normal, no discharge. [] Neck: Normal range of motion, no tenderness, supple, no stridor. [] Cardiovascular: Regular rate and rhythm[] Lungs & Thorax: Bilateral breath sounds clear to auscultation [] Abdomen: Bowel sounds normal, soft, with moderate right lower quadrant tenderness. [] Skin: Warm, dry, no erythema, no rash. [] Extremities: No tenderness, no cyanosis, no clubbing, ROM intact, no edema. [] Neurologic: Alert and oriented X 3, no focal deficits noted. [] Current Patient Data Vital Signs Vital Signs Date Time Temp Pulse Resp B/P (MAP) Pulse Ox O2 Delivery O2 Flow Rate FiO2 03/08/19 11:04 18 03/08/19 11:03 99 150/101 (117) 100 Room Air 03/08/19 09:39 98.3 98.3 Lab Values Laboratory Tests Test 03/08/19 09:50 03/08/19 10:03 Urine Collection Type Unknown Urine Color Yellow Urine Clarity Clear Urine pH 6.5 Urine Specific [place] 1.020 Urine Protein Negative mg/dL (NEG-TRACE) Urine Glucose (UA) Negative mg/dL (NEG) Urine Ketones (Stick) Negative mg/dL (NEG) Urine Blood Negative (NEG) Urine Nitrite Negative (NEG) Urine Bilirubin Negative (NEG) Urine Urobilinogen Dipstick 1.0 mg/dL (0.2 mg/dL) Urine Leukocyte Esterase Negative (NEG) Urine RBC 0 /HPF (0-2) Urine WBC Occ /HPF (0-4) Urine Squamous Epithelial Cells Many /LPF Urine Bacteria Few /HPF (0-FEW) Urine Mucus Mod /LPF POC Urine HCG, Qualitative Hcg negative (Negative) White Blood Count 7.1 x10^3/uL (4.0-11.0) Red Blood Count 4.12 x10^6/uL (3.50-5.40) Hemoglobin 13.0 g/dL (12.0-15.5) Hematocrit 37.9 % (36.0-47.0) Mean Corpuscular Volume 92 fL (79-100) Mean Corpuscular Hemoglobin 32 pg (25-35) Mean Corpuscular Hemoglobin Concent 34 g/dL (31-37) Red Cell Distribution Width 13.8 % (11.5-14.5) Platelet Count 260 x10^3/uL (140-400) Neutrophils (%) (Auto) 62 % (31-73) Lymphocytes (%) (Auto) 25 % (24-48) Monocytes (%) (Auto) 8 % (0-9) Eosinophils (%) (Auto) 4 % (0-3) H Basophils (%) (Auto) 1 % (0-3) Neutrophils # (Auto) 4.4 x10^3/uL (1.8-7.7) Lymphocytes # (Auto) 1.8 x10^3/uL (1.0-4.8) Monocytes # (Auto) 0.6 x10^3/uL (0.0-1.1) Eosinophils # (Auto) 0.3 x10^3/uL (0.0-0.7) Basophils # (Auto) 0.1 x10^3/uL (0.0-0.2) Sodium Level 141 mmol/L (136-145) Potassium Level 3.8 mmol/L (3.5-5.1) Chloride Level 102 mmol/L (98-107) Carbon Dioxide Level 29 mmol/L (21-32) Anion Gap 10 (6-14) Blood Urea Nitrogen 14 mg/dL (7-20) Creatinine 0.7 mg/dL (0.6-1.0) Estimated GFR (Cockcroft-Gault) 101.1 BUN/Creatinine Ratio 20 (6-20) Glucose Level 164 mg/dL (70-99) H Calcium Level 8.9 mg/dL (8.5-10.1) Total Bilirubin 0.2 mg/dL (0.2-1.0) Aspartate Amino Transferase (AST) 15 U/L (15-37) Alanine Aminotransferase (ALT) 20 U/L (14-59) Alkaline Phosphatase 73 U/L (46-116) Total Protein 7.2 g/dL (6.4-8.2) Albumin 3.7 g/dL (3.4-5.0) Albumin/Globulin Ratio 1.1 (1.0-1.7) Lipase 243 U/L (73-393) Laboratory Tests 03/08/19 10:03 Laboratory Tests 03/08/19 10:03 EKG EKG [] Radiology/Procedures Radiology/Procedures [] Impressions: PROCEDURE: CT ABD PELV W/ IV CONTRST ONLY CT ABD PELV W/ IV CONTRST ONLY History: Right lower quadrant abdominal pain, nausea vomiting diarrhea Comparison: 03/21/2018 Technique: After administration of intravenous contrast, helical CT of the abdomen and pelvis was performed from the lung bases through the ischial tuberosities. Coronal and sagittal reconstructions were obtained. 75 mL of Isovue-370 were used. One or more of the following dose reduction techniques were utilized: Automated exposure control (AEC), Adjustment of mA and/or kV according to patient size, Use of iterative reconstruction technique such as ASiR, CT scan done according to ALARA and image gently/image wisely Abdomen Findings: The visualized lung bases are clear. The liver, pancreas, spleen, and bilateral adrenal glands are normal. Cholecystectomy. Symmetric renal enhancement. There is no focal renal mass. There is no hydronephrosis. The visualized loops of small bowel are normal. Large amount of stool and fluid throughout the colon. There is no evidence of bowel obstruction. Appendix is not seen. There is no free fluid. There is no mesenteric or retroperitoneal adenopathy. The abdominal aorta is normal in caliber. Pelvis Findings: Urinary bladder is normal. No pelvic free fluid. There is no pelvic or inguinal adenopathy. There is no acute bony abnormality. IMPRESSION: Large amount of stool and fluid throughout the colon, consistent with patient's history of diarrhea. Electronically signed by: Dany Medina MD (03/08/2019 11:28 AM) [facility] DICTATED and SIGNED BY: DANY MEDINA MD DATE: 03/08/19 112 Course & Med Decision Making Course & Med Decision Making Pertinent Labs and Imaging studies reviewed. (See chart for details) [] Dragon Disclaimer Dragon Disclaimer This electronic medical record was generated, in whole or in part, using a voice recognition dictation system. Departure Departure Impression: Primary Impression: Abdominal pain Additional Impression: Diarrhea Disposition: 01 HOME, SELF-CARE Condition: STABLE Referrals: UNKNOWN PCP NAME (PCP) Patient Instructions: Abdominal Pain, Diarrhea Scripts Acetaminophen With Codeine (TYLENOL WITH CODEINE #3 TABLET) 1 Each Tablet 1 TAB PO PRN Q6HRS PRN for PAIN, #12 TAB Prov: MERCED MARCH Jr. DO 03/08/19 Ondansetron (ONDANSETRON ODT) 4 Mg Tab.rapdis 1 TAB PO PRN Q6-8HRS PRN for NAUSEA, #15 TAB Prov: MERCED MARCH Jr. DO 03/08/19 Problem Qualifiers Primary Impression: Abdominal pain Abdominal location: right lower quadrant Qualified Codes: R10.31 - Right lower quadrant pain Additional Impression: Diarrhea Diarrhea type: unspecified type Qualified Codes: R19.7 - Diarrhea, unspecified MERCED MARCH Jr. DO Mar 08, 2019 09:50
[2019-03-08] MEDS ORDERED: ONDANSETRON PF 4 MG/2 ML VIAL. IV ONE (10:00)
[2019-03-08 10:06] LABS: BILIRUBIN,URINE NEGATIVE (NEG); CLARITY,URINE CLEAR; COLOR,URINE YELLOW; NITRITE,URINE NEGATIVE (NEG); PH,URINE 6.5; PROTEIN,URINE NEGATIVE (NEG-TRACE)
[2019-03-08] MEDS: fentaNYL PF VIAL 100 MCG/2 ML VIAL IV PRN ×3 (10:07→11:52)
[2019-03-08 10:10] LABS: BASO # 0.1 x10^3/uL (0.0-0.2); BASO % 1 % (0-3); EOS # 0.3 x10^3/uL (0.0-0.7); EOS % 4 % (0-3); HEMATOCRIT 37.9 % (36.0-47.0); LYMPH # 1.8 x10^3/uL (1.0-4.8); LYMPH % 25 % (24-48); MEAN CORPUSCULAR HEMOGLOBIN 32 pg (25-35); MEAN CORPUSCULAR HGB CONC 34 g/dL (31-37); MEAN CORPUSCULAR VOLUME 92 fL (79-100); MONO # 0.6 x10^3/uL (0.0-1.1); MONO % 8 % (0-9); NEUT # 4.4 x10^3/uL (1.8-7.7); NEUT % 62 % (31-73); PLATELET COUNT 260 x10^3/uL (140-400); RED BLOOD COUNT 4.12 x10^6/uL (3.50-5.40); RED CELL DISTRIBUTION WIDTH 13.8 % (11.5-14.5); WHITE BLOOD COUNT 7.1 x10^3/uL (4.0-11.0)
[2019-03-08 10:19] LABS: CALCIUM 8.9 mg/dL (8.5-10.1); CREATININE 0.7 mg/dL (0.6-1.0); GFR 101.1; POTASSIUM 3.8 mmol/L (3.5-5.1)
[2019-03-08 10:26] LABS: ALBUMIN 3.7 g/dL (3.4-5.0); ALBUMIN/GLOBULIN RATIO 1.1 (1.0-1.7); TOTAL BILIRUBIN 0.2 mg/dL (0.2-1.0); TOTAL PROTEIN 7.2 g/dL (6.4-8.2)
[2019-03-08 10:28] LABS: BACTERIA,URINE FEW /HPF (0-FEW); RBC,URINE 0 /HPF (0-2); SQUAMOUS EPITHELIAL CELL,UR MANY /LPF; WBC,URINE OCC /HPF (0-4)
[2019-03-08] MEDS ORDERED: IOHEXOL 300 MG/ML 100ML VIAL. IV ONE (10:45)
[2019-03-08] MEDS ORDERED: CONTRAST GIVEN. MC PRN (10:45)
--- NOTE | 2019-03-08 11:30 | RAD ---
CT ABD PELV W/ IV CONTRST ONLY History: Right lower quadrant abdominal pain, nausea vomiting diarrhea Comparison: 03/21/2018 Technique: After administration of intravenous contrast, helical CT of the abdomen and pelvis was performed from the lung bases through the ischial tuberosities. Coronal and sagittal reconstructions were obtained. 75 mL of Isovue-370 were used. One or more of the following dose reduction techniques were utilized: Automated exposure control (AEC), Adjustment of mA and/or kV according to patient size, Use of iterative reconstruction technique such as ASiR, CT scan done according to ALARA and image gently/image wisely Abdomen Findings: The visualized lung bases are clear. The liver, pancreas, spleen, and bilateral adrenal glands are normal. Cholecystectomy. Symmetric renal enhancement. There is no focal renal mass. There is no hydronephrosis. The visualized loops of small bowel are normal. Large amount of stool and fluid throughout the colon. There is no evidence of bowel obstruction. Appendix is not seen. There is no free fluid. There is no mesenteric or retroperitoneal adenopathy. The abdominal aorta is normal in caliber. Pelvis Findings: Urinary bladder is normal. No pelvic free fluid. There is no pelvic or inguinal adenopathy. There is no acute bony abnormality. IMPRESSION: Large amount of stool and fluid throughout the colon, consistent with patient's history of diarrhea. Electronically signed by: Tim Rodarte MD (03/08/2019 11:28 AM) [facility]
[2019-03-08] MEDS ORDERED: ONDA4TAB12 PO (11:45)
[2019-03-08] MEDS ORDERED: ACET-704 PO (11:45)
[2019-03-08 12:08] VITALS: BP 150/82
== END 2019-03-08 12:08 | disposition home or self-care (01) ==
LOC: ER 09:31
DX: R10.31 Right lower quadrant pain (principal); R19.7 Diarrhea, unspecified; R11.2 Nausea with vomiting, unspecified; R63.0 Anorexia; I10 Essential (primary) hypertension; K58.8 Other irritable bowel syndrome; Z98.51 Tubal ligation status; Z90.49 Acquired absence of other specified parts of digestive tract; Z98.890 Other specified postprocedural states; Z88.6 Allergy status to analgesic agent; Z79.899 Other long term (current) drug therapy
CPT/HCPCS: 36415; 74177; 80053; 81001; 81025; 83690; 85025; 96361; 96374; 96375; 96376; 99285; J2405; J3010; J7030; Q9967

== ENCOUNTER 2019-03-12 12:47 | Emergency (ER) | payer SELFPAY ==
[~2019-03-12] VITALS: Ht 157.5 cm; Wt 68.0 kg
[~2019-03-12 12:47] MED LIST changes: +ACET-704 PO
--- NOTE | 2019-03-12 14:41 | PHYS DOC ---
Past Medical History Past Medical History: Hypertension, IBS, Seizure, Other Additional Past Medical Histor: ovarian cyst Past Surgical History: Cholecystectomy, , Tubal ligation Additional Past Surgical Histo: X 3 Additional Information: Nonsmoker Alcohol Use: None Drug Use: None Adult General Chief Complaint Chief Complaint: MULTIPLE COMPLAINTS HPI HPI Patient is a 28 year old female a history of IBS who presents to the ED with right lower quadrant abdominal pain. Review of records, patient was seen in the ED on the for the same complaint. Labs and CT of abdomen and pelvis were unremarkable except for some stool and liquid in bowels consistent for known diarrhea. Today, patient endorses the same pain that radiates down to the groin and around on her right back. Reports chest pain and shortness of breath for the past hour. She describes the chest pain as a tightness, location is substernal and nonradiating. Denies hematuria, blood in stool, vomiting, vaginal bleeding or discharge. She also reports diarrhea and fever at home. Reports tmax 103. Denies taking any medication prior to arrival for fever. Review of Systems Review of Systems Constitutional: Denies fever or chills Eyes: Denies redness or eye pain HENT: Denies nasal congestion or sore throat Respiratory: Reports shortness of breath. Denies cough Cardiovascular: Reports chest tightness. Denies palpitations GI: Reports abdominal pain, nausea, and diarrhea. Denies vomiting : Denies dysuria or hematuria Musculoskeletal: Denies back pain or joint pain Integument: Denies rash or skin lesions Neurologic: Denies headache, focal weakness or sensory changes Complete systems were reviewed and found to be within normal limits, except as documented in this note. Current Medications Current Medications Current Medications Medications (Trade) Dose Ordered Sig/[place] Start Time Stop Time Status Last Admin Dose Admin Acetaminophen (Tylenol) 500 mg 1X ONCE 03/12/19 16:00 03/12/19 16:01 DC 03/12/19 16:19 500 MG Famotidine (Pepcid Vial) 20 mg 1X ONCE 03/12/19 15:00 03/12/19 15:01 DC 03/12/19 15:23 20 MG Hyoscyamine (Anaspaz) 0.125 mg 1X ONCE 03/12/19 16:00 03/12/19 16:01 DC 03/12/19 16:19 0.125 MG Labetalol HCl (Normodyne Iv Push) 10 mg 1X ONCE 03/12/19 16:00 03/12/19 16:01 DC 03/12/19 16:14 10 MG Sodium Chloride 1,000 ml @ 1,000 mls/hr 1X ONCE 03/12/19 15:00 03/12/19 15:59 DC 03/12/19 15:24 1,000 MLS/HR Allergies Allergies Allergies Coded Allergies Type Severity Reaction Last Updated Verified ketorolac Allergy Intermediate 03/08/19 Yes morphine Allergy Intermediate 03/08/19 Yes Physical Exam Physical Exam Constitutional: Well developed, well nourished, no acute distress, non-toxic appearance HENT: Normocephalic, atraumatic, oropharynx moist Eyes: Conjunctiva normal, no discharge Neck: Normal range of motion, no tenderness, supple Cardiovascular: Heart rate normal, regular rhythm Lungs & Thorax: Bilateral breath sounds clear to auscultation, no wheezing Abdomen: Soft, RLQ tenderness Skin: Warm, dry, no erythema, no rash Back: No tenderness, no CVA tenderness Extremities: No tenderness, ROM intact, no edema Neurologic: Alert and oriented X 3, no focal deficits noted Psychologic: Affect normal, judgement normal Current Patient Data Vital Signs Vital Signs Date Time Temp Pulse Resp B/P (MAP) Pulse Ox O2 Delivery O2 Flow Rate FiO2 03/12/19 16:55 91 20 148/86 (106) 97 Room Air 03/12/19 14:25 100.1 100.1 Lab Values Laboratory Tests Test 03/12/19 14:27 03/12/19 14:28 03/12/19 15:15 Urine Collection Type Unknown Urine Color Yellow Urine Clarity Clear Urine pH 5.5 Urine Specific [place] 1.020 Urine Protein Negative mg/dL (NEG-TRACE) Urine Glucose (UA) Negative mg/dL (NEG) Urine Ketones (Stick) Negative mg/dL (NEG) Urine Blood Negative (NEG) Urine Nitrite Negative (NEG) Urine Bilirubin Negative (NEG) Urine Urobilinogen Dipstick 0.2 mg/dL (0.2 mg/dL) Urine Leukocyte Esterase Negative (NEG) Urine RBC 0 /HPF (0-2) Urine WBC 1-4 /HPF (0-4) Urine Squamous Epithelial Cells Many /LPF Urine Transitional Epithelial Cells Occ /LPF Urine Bacteria Few /HPF (0-FEW) Urine Mucus Marked /LPF POC Urine HCG, Qualitative Hcg negative (Negative) White Blood Count 7.2 x10^3/uL (4.0-11.0) Red Blood Count 4.22 x10^6/uL (3.50-5.40) Hemoglobin 13.3 g/dL (12.0-15.5) Hematocrit 38.8 % (36.0-47.0) Mean Corpuscular Volume 92 fL (79-100) Mean Corpuscular Hemoglobin 31 pg (25-35) Mean Corpuscular Hemoglobin Concent 34 g/dL (31-37) Red Cell Distribution Width 14.0 % (11.5-14.5) Platelet Count 280 x10^3/uL (140-400) Neutrophils (%) (Auto) 71 % (31-73) Lymphocytes (%) (Auto) 18 % (24-48) L Monocytes (%) (Auto) 8 % (0-9) Eosinophils (%) (Auto) 2 % (0-3) Basophils (%) (Auto) 0 % (0-3) Neutrophils # (Auto) 5.2 x10^3/uL (1.8-7.7) Lymphocytes # (Auto) 1.3 x10^3/uL (1.0-4.8) Monocytes # (Auto) 0.6 x10^3/uL (0.0-1.1) Eosinophils # (Auto) 0.1 x10^3/uL (0.0-0.7) Basophils # (Auto) 0.0 x10^3/uL (0.0-0.2) Sodium Level 141 mmol/L (136-145) Potassium Level 3.6 mmol/L (3.5-5.1) Chloride Level 104 mmol/L (98-107) Carbon Dioxide Level 29 mmol/L (21-32) Anion Gap 8 (6-14) Blood Urea Nitrogen 13 mg/dL (7-20) Creatinine 0.8 mg/dL (0.6-1.0) Estimated GFR (Cockcroft-Gault) 86.7 BUN/Creatinine Ratio 16 (6-20) Glucose Level 116 mg/dL (70-99) H Calcium Level 8.9 mg/dL (8.5-10.1) Magnesium Level 1.7 mg/dL (1.8-2.4) L Total Bilirubin 0.2 mg/dL (0.2-1.0) Aspartate Amino Transferase (AST) 12 U/L (15-37) L Alanine Aminotransferase (ALT) 15 U/L (14-59) Alkaline Phosphatase 58 U/L (46-116) Total Protein 7.3 g/dL (6.4-8.2) Albumin 3.5 g/dL (3.4-5.0) Albumin/Globulin Ratio 0.9 (1.0-1.7) L Lipase 156 U/L (73-393) Laboratory Tests 03/12/19 15:15 Laboratory Tests 03/12/19 15:15 EKG EKG @1602 NSR at 96bpm, NO ST elevation, Q wave II-III and aVF Radiology/Procedures Radiology/Procedures PROCEDURE: CHEST PA & LATERAL CHEST PA LATERAL History: Chest pain Comparison: 05/03/2018 portable chest x-ray exam. Findings: The cardiomediastinal silhouette is normal. Pulmonary vasculature is normal. The lungs are clear. No pleural effusion or pneumothorax is seen. There is no acute bone abnormality. Requires surgical clips are present. IMPRESSION: No acute cardiopulmonary process. Electronically signed by: George Robins MD (03/12/2019 3:09 PM) [facility] PROCEDURE: PELVIS COMPLETE Exam: Ultrasound pelvis complete Indication: Right adnexal pain Technique: Real-time grayscale and color Doppler images of the pelvis were obtained by the department painter foreman. Comparisons: None FINDINGS: Uterus measures 8.7 x 5.4 x 5.0 cm. Endometrium is 7 mm in thickness. Right ovary measures 2.9 x 2.3 x 2.0 cm. Left ovary measures 2.7 x 1.8 x 1.9 cm. Vascular flow is identified within the ovaries bilaterally. No free fluid. IMPRESSION: Normal sonographic appearance of the uterus and ovaries. Electronically signed by: Lisa Hall MD (03/12/2019 5:34 PM) [facility] Course & Med Decision Making Course & Med Decision Making Pertinent Labs and Imaging studies reviewed. (See chart for details) Patient presents to the ED for right lower quadrant abdominal pain that radiates to groin and around the right side of the back. Patient was seen in the ED 2 days ago for a similar complaint, workup was unremarkable. Patient today also endorses chest pain and shortness of breath. Chest x-ray in the ED is unremarkable. Due to recent abdominal pelvic CT will do a pelvic ultrasound to rule out ovarian torsion and other ovarian pathology. US without acute process. Patient with elevated blood pressure due to lack of insurance. Patient reports that she normally takes labetalol for her blood pressure but has not taken in the last month due to insurance issues. Patient stable for discharge with outpatient follow-up with PCP. Discussed findings and plan with patient, who acknowledges understanding and agreement. Dragon Disclaimer Dragon Disclaimer This electronic medical record was generated, in whole or in part, using a voice recognition dictation system. Departure Departure Impression: Primary Impression: Abdominal pain Additional Impressions: Hx of fever Diarrhea Hypertension Medication refill Disposition: HOME, SELF-CARE Condition: STABLE Referrals: NO PCP (PCP) FILIPPO PALMER MD, SARASWATHI MD Patient Instructions: Abdominal Pain (Nonspecific), Diarrhea, [id number], Diet for Diarrhea, Adult, Fever, Adult, [id number], Hypertension, Easy-to- Read, Medication Refill, Emergency Department Scripts Labetalol Hcl (LABETALOL HCL) 100 Mg Tablet 1 TAB PO BID, #20 TAB Prov: FLACO GIBBONS DO 03/12/19 Hyoscyamine Sulfate (LEVSIN-SL) 0.125 Mg Tab.subl 0.125 MG SL Q6HRS PRN for PAIN, #20 TAB Prov: FLACO GIBBONS DO 03/12/19 Problem Qualifiers Primary Impression: Abdominal pain Abdominal location: right lower quadrant Qualified Codes: R10.31 - Right lower quadrant pain Additional Impressions: Diarrhea Diarrhea type: unspecified type Qualified Codes: R19.7 - Diarrhea, unspecified Hypertension Hypertension type: unspecified Qualified Codes: I10 - Essential (primary) hypertension FLACO GIBBONS DO Mar 12, 2019 14:41
[2019-03-12] MEDS ORDERED: FAMOTIDINE 20 MG/2 ML VIAL IVP ONE (15:00)
[2019-03-12] MEDS ORDERED: IV NORMAL SALINE 1000ML BAG 1,000 ML IV ONE (15:00)
[2019-03-12 15:03] LABS: BILIRUBIN,URINE NEGATIVE (NEG); CLARITY,URINE CLEAR; COLOR,URINE YELLOW; NITRITE,URINE NEGATIVE (NEG); PH,URINE 5.5; PROTEIN,URINE NEGATIVE (NEG-TRACE); UROBILINOGEN,URINE 0.2 mg/dL (0.2 mg/dL)
--- NOTE | 2019-03-12 15:12 | RAD ---
CHEST PA LATERAL History: Chest pain Comparison: 05/03/2018 portable chest x-ray exam. Findings: The cardiomediastinal silhouette is normal. Pulmonary vasculature is normal. The lungs are clear. No pleural effusion or pneumothorax is seen. There is no acute bone abnormality. Requires surgical clips are present. IMPRESSION: No acute cardiopulmonary process. Electronically signed by: George Robins MD (03/12/2019 3:09 PM) [facility]
[2019-03-12 15:24] LABS: SQUAMOUS EPITHELIAL CELL,UR MANY /LPF
[2019-03-12 15:26] LABS: BACTERIA,URINE FEW /HPF (0-FEW); RBC,URINE 0 /HPF (0-2)
[2019-03-12 15:36] LABS: BASO % 0 % (0-3); EOS # 0.1 x10^3/uL (0.0-0.7); EOS % 2 % (0-3); HEMATOCRIT 38.8 % (36.0-47.0); HEMOGLOBIN 13.3 g/dL (12.0-15.5); LYMPH # 1.3 x10^3/uL (1.0-4.8); LYMPH % 18 % (24-48); MEAN CORPUSCULAR HEMOGLOBIN 31 pg (25-35); MEAN CORPUSCULAR HGB CONC 34 g/dL (31-37); MEAN CORPUSCULAR VOLUME 92 fL (79-100); MONO # 0.6 x10^3/uL (0.0-1.1); MONO % 8 % (0-9); NEUT # 5.2 x10^3/uL (1.8-7.7); NEUT % 71 % (31-73); PLATELET COUNT 280 x10^3/uL (140-400); RED BLOOD COUNT 4.22 x10^6/uL (3.50-5.40); WHITE BLOOD COUNT 7.2 x10^3/uL (4.0-11.0)
[2019-03-12 15:48] LABS: CALCIUM 8.9 mg/dL (8.5-10.1); CREATININE 0.8 mg/dL (0.6-1.0); GFR 86.7; POTASSIUM 3.6 mmol/L (3.5-5.1)
[2019-03-12 15:54] LABS: ALBUMIN 3.5 g/dL (3.4-5.0); ALBUMIN/GLOBULIN RATIO 0.9 (1.0-1.7); MAGNESIUM 1.7 mg/dL (1.8-2.4); TOTAL BILIRUBIN 0.2 mg/dL (0.2-1.0); TOTAL PROTEIN 7.3 g/dL (6.4-8.2)
[2019-03-12] MEDS ORDERED: HYOSCYAMINE 0.125 MG TAB.RAPDIS PO ONE (16:00)
[2019-03-12] MEDS ORDERED: ACETAMINOPHEN 500 MG TABLET PO ONE (16:00)
[2019-03-12] MEDS ORDERED: LABETALOL 20 MG/4 ML DISP.SYRIN. IVP ONE (16:00)
--- NOTE | 2019-03-12 16:06 | EKG ---
[facility] [address] [place] [address] Test Date: 2019-03-12 Test Time: 16:00:11 Pat Name: DONAL LEE Department: Room: Gender: F Spring Clipper: : 1990 Requested By: FLACO GIBBONS Order Number: [id number] Reading MD: Measurements Intervals [place] Rate: 88 P: 0 MA: 136 QRS: 48 QRSD: 80 T: 26 QT: 346 QTc: 421 Interpretive Statements SINUS RHYTHM NON SPECIFIC T ABNORMALITY BORDERLINE ECG No previous ECG available for comparison
--- NOTE | 2019-03-12 17:37 | RAD ---
Exam: Ultrasound pelvis complete Indication: Right adnexal pain Technique: Real-time grayscale and color Doppler images of the pelvis were obtained by the department receptionist doctor's office. Comparisons: None FINDINGS: Uterus measures 8.7 x 5.4 x 5.0 cm. Endometrium is 7 mm in thickness. Right ovary measures 2.9 x 2.3 x 2.0 cm. Left ovary measures 2.7 x 1.8 x 1.9 cm. Vascular flow is identified within the ovaries bilaterally. No free fluid. IMPRESSION: Normal sonographic appearance of the uterus and ovaries. Electronically signed by: Lisa Hall MD (03/12/2019 5:34 PM) [facility]
[2019-03-12 17:55] VITALS: BP 151/91
[2019-03-12] MEDS ORDERED: LABE100T5 PO (17:55)
[2019-03-12] MEDS ORDERED: HYOS0.1265 SL (17:55)
--- NOTE | 2019-03-13 10:10 | EKG ---
[facility] [address] [place] [address] Test Date: 2019-03-12 Test Time: 16:02:23 Pat Name: DONAL LEE Department: Room: Gender: F Label Rewinder: : 1990 Requested By: FLACO GIBBONS Order Number: [id number] Reading MD: Measurements Intervals [place] Rate: 95 P: 26 AR: 134 QRS: 52 QRSD: 80 T: 28 QT: 340 QTc: 430 Interpretive Statements SINUS RHYTHM NON SPECIFIC T ABNORMALITY BORDERLINE ECG No previous ECG available for comparison
== END 2019-03-12 18:00 | disposition home or self-care (01) ==
LOC: ER 12:47
DX: R10.31 Right lower quadrant pain (principal); R19.7 Diarrhea, unspecified; I10 Essential (primary) hypertension; Z76.0 Encounter for issue of repeat prescription; K58.9 Irritable bowel syndrome, unspecified; Z90.49 Acquired absence of other specified parts of digestive tract; Z98.51 Tubal ligation status; Z98.890 Other specified postprocedural states; Z88.6 Allergy status to analgesic agent; Z79.899 Other long term (current) drug therapy
CPT/HCPCS: 36415; 71046; 76856; 80053; 81001; 81025; 83690; 83735; 85025; 93005; 96361; 96374; 96375; 99285; J3490; J7030

== ENCOUNTER 2019-04-10 11:58 | Emergency (ER) | payer OTHER ==
[~2019-04-10] VITALS: Ht 154.9 cm; Wt 63.6 kg
[~2019-04-10 11:58] MED LIST changes: +HYOS0.1265 SL
[2019-04-10 12:24] VITALS: BP 150/100
--- NOTE | 2019-04-10 12:43 | PHYS DOC ---
Past Medical History Past Medical History: Anxiety, Hypertension, IBS, Seizure, Other Additional Past Medical Histor: ovarian cyst Past Surgical History: Cholecystectomy, , Tubal ligation Additional Past Surgical Histo: X 3 Smoking Status: Never Smoker Alcohol Use: None Drug Use: None Adult General Chief Complaint Chief Complaint: ANXIETY/PANIC ATTACK HPI HPI Patient is a 28 year old female with history of anxiety, hypertension, seizures, IBS, who presents to the ED today complaining of an anxiety attack that began while she was in court. Patient reports being in court for traffic violations. She is requesting a refill on her Xanax, she states she takes 1 mg of Xanax 4 times a day and she ran out of the medication 3 days ago. She states she cannot see the subscriber for the Xanax until next Sunday. Patient denies any suicidal or homicidal ideations. Review of Systems Review of Systems Constitutional: Denies fever or chills [] Eyes: Denies change in visual acuity, redness, or eye pain [] HENT: Denies nasal congestion or sore throat [] Respiratory: Denies cough or shortness of breath [] Cardiovascular: No additional information not addressed in HPI [] GI: Denies abdominal pain, nausea, vomiting, bloody stools or diarrhea [] : Denies dysuria or hematuria [] Musculoskeletal: Denies back pain or joint pain [] Integument: Denies rash or skin lesions [] Neurologic: Denies headache, focal weakness or sensory changes [] Psych: Reports anxiety attack All other systems were reviewed and found to be within normal limits, except as documented in this note. Allergies Allergies Allergies Coded Allergies Type Severity Reaction Last Updated Verified ketorolac Allergy Intermediate 03/08/19 Yes morphine Allergy Intermediate 03/08/19 Yes Physical Exam Physical Exam Constitutional: Well developed, well nourished, no acute distress, non-toxic appearance. [] HENT: Normocephalic, atraumatic, bilateral external ears normal, oropharynx moist, no oral exudates, nose normal. [] Eyes: PERRLA, EOMI, conjunctiva normal, no discharge. [] Neck: Normal range of motion, no tenderness, supple, no stridor. [] Cardiovascular:Heart rate regular rhythm, no murmur [] Lungs & Thorax: Bilateral breath sounds clear to auscultation [] Abdomen: Bowel sounds normal, soft, no tenderness, no masses, no pulsatile masses. [] Skin: Warm, dry, no erythema, no rash. [] Back: No tenderness, no CVA tenderness. [] Extremities: No tenderness, no cyanosis, no clubbing, ROM intact, no edema. [] Neurologic: Alert and oriented X 3, normal motor function, normal sensory function, no focal deficits noted. [] Psychologic: Appears anxious. Current Patient Data Vital Signs Vital Signs Date Time Temp Pulse Resp B/P (MAP) Pulse Ox O2 Delivery O2 Flow Rate FiO2 04/10/19 12:24 98.4 74 22 150/100 (117) 99 Room Air 98.4 EKG EKG [] Radiology/Procedures Radiology/Procedures [] Course & Med Decision Making Course & Med Decision Making Pertinent Labs and Imaging studies reviewed. (See chart for details) This is a 28-year-old female patient presenting to the ED today requesting a refill of anxiety medicine specifically Xanax 1 mg 4 times a day. Patient reports being in court today and having an anxiety attack. She reports running out of the medications 3 days ago. [facility] shows patient got a refill of Xanax 1 mg 60 tablets 30 day supply on March 25, 2019. Informed patient will not refill her Xanax. Requested her to follow-up with her own doctor for refills. Dragon Disclaimer Dragon Disclaimer This electronic medical record was generated, in whole or in part, using a voice recognition dictation system. Departure Departure Impression: Primary Impression: Anxiety Disposition: 01 HOME, SELF-CARE Condition: STABLE Referrals: UNKNOWN PCP NAME (PCP) follow up with your doctor for anxiety medicine Patient Instructions: Anxiety and Panic Attacks, [id number] Additional Instructions: Please follow up with your own doctor for anxiety medications. ANAIS PORRAS APRN Apr 10, 2019 12:43
[2019-04-10] MEDS ORDERED: ALPRAZolam 0.5 MG TABLET PO ONE (12:45)
== END 2019-04-10 12:53 | disposition home or self-care (01) ==
LOC: ER 11:58
DX: F41.9 Anxiety disorder, unspecified (principal); I10 Essential (primary) hypertension; K58.9 Irritable bowel syndrome, unspecified; Z88.5 Allergy status to narcotic agent; Z88.8 Allergy status to other drugs, medicaments and biological substances
CPT/HCPCS: 99283

== ENCOUNTER 2019-04-23 08:46 | Emergency (ER) | payer MEDICAID, OTHER ==
[~2019-04-23] VITALS: Ht 157.5 cm; Wt 68.1 kg
[2019-04-23 10:12] VITALS: BP 135/86
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
== END 2019-04-23 10:55 | disposition home or self-care (01) ==
LOC: ER 08:46
DX: G89.18 Other acute postprocedural pain (principal); M79.604 Pain in right leg; F41.9 Anxiety disorder, unspecified; I10 Essential (primary) hypertension; K58.9 Irritable bowel syndrome, unspecified; Z90.49 Acquired absence of other specified parts of digestive tract; Z98.51 Tubal ligation status; Z98.890 Other specified postprocedural states; Z88.6 Allergy status to analgesic agent
CPT/HCPCS: 99281

== ENCOUNTER 2020-05-20 22:25 | Emergency (ER) | payer MEDICAID ==
[~2020-05-20] VITALS: Ht 157.5 cm; Wt 62.7 kg
[~2020-05-20 22:25] MED LIST changes: +CEFD300C PO
[2020-05-20 23:11] LABS: BILIRUBIN,URINE NEGATIVE (NEG); CLARITY,URINE CLOUDY; COLOR,URINE YELLOW; NITRITE,URINE NEGATIVE (NEG); PH,URINE 7.5 (<5.0-8.0); PROTEIN,URINE NEGATIVE (NEG-TRACE); UROBILINOGEN,URINE 0.2 mg/dL (0.2 mg/dL)
[2020-05-20] MEDS ORDERED: fentaNYL PF VIAL 100 MCG/2 ML VIAL IVP ONE (23:15)
[2020-05-20 23:18] LABS: BACTERIA,URINE FEW /HPF (0-FEW); RBC,URINE 0 /HPF (0-2)
--- NOTE | 2020-05-20 23:44 | ED.ADGEN ---
Past Medical History Past Medical History: Anxiety, Depression, Hypertension, IBS, Seizure, Other Additional Past Medical Histor: ovarian cyst Past Surgical History: Cholecystectomy, , Tubal ligation Additional Past Surgical Histo: X 3 Smoking Status: Never Smoker Alcohol Use: None Drug Use: None General Adult EDM: Chief Complaint: ABDOMINAL PAIN HPI: HPI: Patient is a 29-year-old female who presents to the emergency room complaining of right lower quadrant abdominal pain. She states that this started about 3 days ago. At that time she went to [facility] and they did an ultrasound which showed an ovarian cyst. They told her that her pain was likely due to the cyst and that she should follow-up with her [employer]. Patient states that since that time she has had worsening pain. She states the pain has become severe today and she started having nausea and vomiting. She has not been able to eat all day because she does not have an appetite. She states she felt feverish earlier today but did not take her temperature. She is unsure how big the cyst was previously. She states the pain feels like a sharp stabbing pain. It is constant. Worse with walking. Review of Systems: Review of Systems: Complete ROS is negative unless otherwise documented in HPI Current Medications: Current Medications Medications (Trade) Dose Ordered Sig/[place] Start Time Stop Time Status Last Admin Dose Admin Barium Sulfate (Readi-Cat 2) 900 ml 1X ONCE 05/21/20 02:00 05/21/20 02:01 DC 05/21/20 02:00 900 ML Diphenhydramine HCl (Benadryl) 25 mg 1X ONCE 05/21/20 02:15 05/21/20 02:16 DC 05/21/20 02:10 25 MG Fentanyl Citrate (Fentanyl 2ml Vial) 50 mcg 1X ONCE 05/20/20 23:15 05/20/20 23:17 DC 05/20/20 23:50 50 MCG Metoclopramide HCl (Reglan Vial) 10 mg 1X ONCE 05/21/20 01:15 05/21/20 01:16 DC 05/21/20 01:55 10 MG Morphine Sulfate (Morphine Sulfate) 5 mg 1X ONCE 05/21/20 01:15 05/21/20 01:16 DC 05/21/20 01:54 5 MG Ondansetron HCl (Zofran) 4 mg 1X ONCE 05/21/20 01:00 05/21/20 01:02 DC 05/21/20 01:02 4 MG Allergies: Allergies: Allergies Coded Allergies Type Severity Reaction Last Updated Verified Iodinated Contrast Media Allergy Intermediate ITCHING 05/20/20 Yes ketorolac Allergy Intermediate 03/08/19 Yes morphine Allergy Intermediate 03/08/19 Yes Physical Exam: PE: General: Awake, alert, NAD. Well Nourished, well hydrated. Cooperative HEENT: Atraumatic, EOMI, PERRL, airway patent, moist oral mucosa Neck: Supple, trachea midline Respiratory: CTA bilaterally, normal effort, no wheezing/crackles CV: RRR, no murmur, cap refill <2 GI: Soft, nondistended, RLQ tenderness with rebound and guarding, no masses MSK: No obvious deformities Skin: Warm, dry, intact Neuro: A&O x3, speech NL, sensory and motor grossly intact, no focal deficits Psych: Normal affect, normal mood, not suicidal or homicidal Current Patient Data: Labs: Laboratory Tests Test 05/20/20 22:30 05/20/20 22:51 05/20/20 23:42 Urine Collection Type Unknown Urine Color Yellow Urine Clarity Cloudy Urine pH 7.5 (<5.0-8.0) Urine Specific [place] 1.025 (1.000-1.030) Urine Protein Negative mg/dL (NEG-TRACE) Urine Glucose (UA) Negative mg/dL (NEG) Urine Ketones (Stick) Negative mg/dL (NEG) Urine Blood Negative (NEG) Urine Nitrite Negative (NEG) Urine Bilirubin Negative (NEG) Urine Urobilinogen Dipstick 0.2 mg/dL (0.2 mg/dL) Urine Leukocyte Esterase Negative (NEG) Urine RBC 0 /HPF (0-2) Urine WBC 1-4 /HPF (0-4) Urine Squamous Epithelial Cells Many /LPF Urine Bacteria Few /HPF (0-FEW) Urine Mucus Marked /LPF POC Urine HCG, Qualitative Hcg negative (Negative) White Blood Count 6.1 x10^3/uL (4.0-11.0) Red Blood Count 3.99 x10^6/uL (3.50-5.40) Hemoglobin 12.9 g/dL (12.0-15.5) Hematocrit 38.2 % (36.0-47.0) Mean Corpuscular Volume 96 fL (79-100) Mean Corpuscular Hemoglobin 32 pg (25-35) Mean Corpuscular Hemoglobin Concent 34 g/dL (31-37) Red Cell Distribution Width 13.4 % (11.5-14.5) Platelet Count 258 x10^3/uL (140-400) Neutrophils (%) (Auto) 60 % (31-73) Lymphocytes (%) (Auto) 30 % (24-48) Monocytes (%) (Auto) 7 % (0-9) Eosinophils (%) (Auto) 3 % (0-3) Basophils (%) (Auto) 1 % (0-3) Neutrophils # (Auto) 3.7 x10^3/uL (1.8-7.7) Lymphocytes # (Auto) 1.8 x10^3/uL (1.0-4.8) Monocytes # (Auto) 0.4 x10^3/uL (0.0-1.1) Eosinophils # (Auto) 0.2 x10^3/uL (0.0-0.7) Basophils # (Auto) 0.0 x10^3/uL (0.0-0.2) Sodium Level 146 mmol/L (136-145) H Potassium Level 4.2 mmol/L (3.5-5.1) Chloride Level 110 mmol/L (98-107) H Carbon Dioxide Level 31 mmol/L (21-32) Anion Gap 5 (6-14) L Blood Urea Nitrogen 10 mg/dL (7-20) Creatinine 0.9 mg/dL (0.6-1.0) Estimated GFR (Cockcroft-Gault) 75.1 BUN/Creatinine Ratio 11 (6-20) Glucose Level 84 mg/dL (70-99) Calcium Level 8.5 mg/dL (8.5-10.1) Total Bilirubin 0.2 mg/dL (0.2-1.0) Aspartate Amino Transferase (AST) 8 U/L (15-37) L Alanine Aminotransferase (ALT) 16 U/L (14-59) Alkaline Phosphatase 84 U/L (46-116) Total Protein 6.7 g/dL (6.4-8.2) Albumin 3.6 g/dL (3.4-5.0) Albumin/Globulin Ratio 1.2 (1.0-1.7) Lipase 193 U/L (73-393) Laboratory Tests 05/20/20 23:42 Laboratory Tests 05/20/20 23:42 Vital Signs: Vital Signs Date Time Temp Pulse Resp B/P (MAP) Pulse Ox O2 Delivery O2 Flow Rate FiO2 05/21/20 02:50 68 118/70 (86) 98 Room Air 05/21/20 01:54 20 05/20/20 22:58 98.5 98.5 EKG: EKG: [] Heart Score: C/O Chest Pain: N/A Risk Factors: Risk Factors: DM, Current or recent (<one month) smoker, HTN, HLP, family history of CAD, obesity. Risk Scores: Score 0 - 3: 2.5% MACE over next 6 weeks - Discharge Home Score 4 - 6: 20.3% MACE over next 6 weeks - Admit for Clinical Observation Score 7 - 10: 72.7% MACE over next 6 weeks - Early Invasive Strategies Radiology/Procedures: Radiology/Procedures: [] Course & Med Decision Making: Course & Med Decision Making Pertinent Labs and Imaging studies reviewed. (See chart for details) Patient is a 29-year-old female who presents to the emergency room complaining of right lower quadrant abdominal pain. Patient does have a known cyst it is unclear how large the cyst is. We will do an ultrasound to rule out torsion. We will do abdominal labs to evaluate for white blood cell count or any signs of electrolyte abnormalities. Patient was given fentanyl for pain. Patient had minimal relief with fentanyl. She was given morphine. Ultrasound does not show any cysts or torsion. There is no signs of free fluid. CT abdomen pelvis will be done to rule out appendicitis. CT is unremarkable. Patient is stable. Labs are normal. Patient's test results and vitals while in the ED were fully reviewed and discussed with the patient. Patient is stable and at this time does not need admission to the hospital. We have discussed strict return precautions and the importance of following up with their Primary Care Physician. Patient stated understanding and was given an opportunity to ask any questions. Patient is in agreement with plan. Dragon Disclaimer: Augustine Disclaimer: This electronic medical record was generated, in whole or in part, using a voice recognition dictation system. Departure Departure Impression: Primary Impression: Abdominal pain Disposition: 01 DC HOME SELF CARE/HOMELESS Condition: IMPROVED Referrals: UNKNOWN PCP NAME (PCP) Patient Instructions: Abdominal Pain RANJAN SHAW MD May 20, 2020 23:44
[2020-05-20] MEDS ORDERED: ONDANSETRON PF 4 MG/2 ML VIAL. IV ONE (23:45)
[2020-05-20 23:50] LABS: BASO % 1 % (0-3); EOS # 0.2 x10^3/uL (0.0-0.7); EOS % 3 % (0-3); HEMATOCRIT 38.2 % (36.0-47.0); HEMOGLOBIN 12.9 g/dL (12.0-15.5); LYMPH # 1.8 x10^3/uL (1.0-4.8); LYMPH % 30 % (24-48); MEAN CORPUSCULAR HEMOGLOBIN 32 pg (25-35); MEAN CORPUSCULAR HGB CONC 34 g/dL (31-37); MEAN CORPUSCULAR VOLUME 96 fL (79-100); MONO # 0.4 x10^3/uL (0.0-1.1); MONO % 7 % (0-9); NEUT # 3.7 x10^3/uL (1.8-7.7); NEUT % 60 % (31-73); PLATELET COUNT 258 x10^3/uL (140-400); RED BLOOD COUNT 3.99 x10^6/uL (3.50-5.40); RED CELL DISTRIBUTION WIDTH 13.4 % (11.5-14.5); WHITE BLOOD COUNT 6.1 x10^3/uL (4.0-11.0)
[2020-05-20 23:58] LABS: CALCIUM 8.5 mg/dL (8.5-10.1); CREATININE 0.9 mg/dL (0.6-1.0); GFR 75.1; POTASSIUM 4.2 mmol/L (3.5-5.1)
[2020-05-21 00:03] LABS: ALBUMIN 3.6 g/dL (3.4-5.0); ALBUMIN/GLOBULIN RATIO 1.2 (1.0-1.7); TOTAL BILIRUBIN 0.2 mg/dL (0.2-1.0); TOTAL PROTEIN 6.7 g/dL (6.4-8.2)
--- NOTE | 2020-05-21 00:39 | RAD ---
US TRANSVAGINAL Clinical Indication: Reason: severe right sided pain, Comparison: Pelvic ultrasound, March 12, 2019. TECHNIQUE: Real-time ultrasound imaging of the pelvis using transvaginal window is performed. Findings: Uterus measures 8.7 x 4.6 x 4.2 cm. No focal abnormality. Uterus is anteverted. Endometrial stripe is normal measuring 6 mm. Color Doppler interrogation is unremarkable. The ovaries are symmetric in size and demonstrate normal blood flow. Small follicles of the ovaries a re identified. There is no adnexal mass. No pelvic free fluid is identified. IMPRESSION: 1. Ovaries demonstrate normal blood flow and small follicles. 2. Uterus and endometrial stripe are normal. Electronically signed by: Conner Boyle MD (05/21/2020 12:37 AM) [facility]
[2020-05-21] MEDS ORDERED: ONDANSETRON PF 4 MG/2 ML VIAL. IVP ONE (01:00)
[2020-05-21] MEDS ORDERED: MORPHINE SULFATE 10 MG/ML VIAL. IV ONE (01:15)
[2020-05-21] MEDS ORDERED: METOCLOPRAMIDE HCL 10 MG/2 ML VIAL. IVP ONE (01:15)
[2020-05-21] MEDS ORDERED: BARIUM SULFATE 2.1% 450 ML SUSP PO ONE (02:00)
[2020-05-21] MEDS ORDERED: diphenhydrAMINE HCL 25 MG CAPSULE PO ONE (02:15)
--- NOTE | 2020-05-21 03:09 | RAD ---
PQRS Compliance Statement: One or more of the following individualized dose reduction techniques were utilized for this examinat ion: 1. Automated exposure control 2. Adjustment of the mA and/or kV according to patient size 3. Use of iterative reconstruction technique CT ABDOMEN+PELVIS W Clinical Indication: Reason: RLQ abd pain; Comparison: CT abdomen and pelvis with contrast March 08, 2019. TECHNIQUE: Helical CT imaging of the abdomen and pelvis is performed after oral contrast. IV contrast not administered. Findings: Lung bases are clear. Cardiac size normal. Cholecystectomy. The liver, spleen, pancreas, adrenal glands, abdominal aorta, and kidneys are normal . No obvious abnormality of the stomach. There is no small bowel obstruction. The appendix is normal. T here is no colon wall thickening. No abdominal free fluid. Up to 1 cm retroperitoneal lymph nodes are stable. The urinary bladder is normal. The ovaries are symmetric. Uterus is anteverted. There is no pelvic fr ee fluid. No acute bone abnormality. IMPRESSION: No acute abdominal or pelvic abnormality. Electronically signed by: Conner Boyle MD (05/21/2020 3:07 AM) [facility]
[2020-05-21 03:41] VITALS: BP 127/87
== END 2020-05-21 04:01 | disposition home or self-care (01) ==
LOC: ER 22:25
DX: R10.31 Right lower quadrant pain (principal); R11.2 Nausea with vomiting, unspecified; I10 Essential (primary) hypertension; K58.9 Irritable bowel syndrome, unspecified; Z90.49 Acquired absence of other specified parts of digestive tract; Z98.51 Tubal ligation status; Z88.5 Allergy status to narcotic agent; Z88.6 Allergy status to analgesic agent; Z91.041 Radiographic dye allergy status
CPT/HCPCS: 36415; 74176; 76830; 80053; 81001; 81025; 83690; 85025; 96374; 96375; 96376; 99285; J2270; J2405; J2765; J3010; Q0163

== ENCOUNTER 2020-07-17 21:39 | Emergency (ER) | payer MEDICAID ==
[~2020-07-17] VITALS: Ht 157.5 cm; Wt 62.7 kg
[2020-07-17 22:33] LABS: BASO # 0.1 x10^3/uL (0.0-0.2); BASO % 1 % (0-3); EOS # 0.5 x10^3/uL (0.0-0.7); EOS % 8 % (0-3); HEMATOCRIT 38.2 % (36.0-47.0); HEMOGLOBIN 13.2 g/dL (12.0-15.5); LYMPH # 2.6 x10^3/uL (1.0-4.8); LYMPH % 37 % (24-48); MEAN CORPUSCULAR HEMOGLOBIN 33 pg (25-35); MEAN CORPUSCULAR HGB CONC 35 g/dL (31-37); MEAN CORPUSCULAR VOLUME 96 fL (79-100); MONO # 0.4 x10^3/uL (0.0-1.1); MONO % 6 % (0-9); NEUT # 3.4 x10^3/uL (1.8-7.7); NEUT % 49 % (31-73); PLATELET COUNT 260 x10^3/uL (140-400); RED CELL DISTRIBUTION WIDTH 12.8 % (11.5-14.5)
[2020-07-17 22:36] LABS: BILIRUBIN,URINE NEGATIVE (NEG); CLARITY,URINE CLEAR; COLOR,URINE YELLOW; NITRITE,URINE NEGATIVE (NEG); PH,URINE 8.5 (<5.0-8.0); PROTEIN,URINE NEGATIVE (NEG-TRACE)
[2020-07-17 22:41] LABS: CALCIUM 8.8 mg/dL (8.5-10.1); CREATININE 1.1 mg/dL (0.6-1.0); GFR 59.6; POTASSIUM 4.6 mmol/L (3.5-5.1)
[2020-07-17 22:42] LABS: BARBITURATES NEG (NEG); BENZODIAZEPINES POS (NEG); CANNABINOIDS NEG (NEG); COCAINE NEG (NEG); METHADONE NEG (NEG); OPIATES POS (NEG); PHENCYCLIDINE NEG (NEG)
[2020-07-17 22:43] LABS: AMPHETAMINE/METHAMPHETAMINE NEG (NEG)
[2020-07-17 22:47] LABS: ALBUMIN 3.8 g/dL (3.4-5.0); ALBUMIN/GLOBULIN RATIO 1.6 (1.0-1.7); TOTAL BILIRUBIN 0.1 mg/dL (0.2-1.0); TOTAL PROTEIN 6.2 g/dL (6.4-8.2)
[2020-07-17 22:47] LABS: AMORPHOUS SEDIMENT,UR PRESENT /HPF; BACTERIA,URINE MOD /HPF (0-FEW)
[2020-07-17 22:55] VITALS: BP 108/63
[2020-07-17] MEDS ORDERED: ACETAMINOPHEN 500 MG TABLET PO ONE (23:00)
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
== END 2020-07-17 23:10 | disposition left against medical advice (07) ==
LOC: EEVIPCON 21:39 → ER 21:39
DX: R10.31 Right lower quadrant pain (principal); I10 Essential (primary) hypertension; K58.9 Irritable bowel syndrome, unspecified; Z90.49 Acquired absence of other specified parts of digestive tract; Z98.51 Tubal ligation status; Z88.5 Allergy status to narcotic agent; Z88.6 Allergy status to analgesic agent; Z91.041 Radiographic dye allergy status
CPT/HCPCS: 36415; 80053; 80307; 81001; 81025; 83690; 85025; 99283; 99284

== ENCOUNTER 2020-08-05 20:46 | Emergency (ER) | payer MEDICAID ==
[~2020-08-05] VITALS: Ht 157.5 cm; Wt 65.0 kg
[2020-08-05 21:40] VITALS: BP 146/87
[2020-08-05 22:23] LABS: BILIRUBIN,URINE NEGATIVE (NEG); CLARITY,URINE CLEAR; COLOR,URINE YELLOW; NITRITE,URINE NEGATIVE (NEG); PROTEIN,URINE NEGATIVE (NEG-TRACE); UROBILINOGEN,URINE 0.2 mg/dL (0.2 mg/dL)
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
[2020-08-05] MEDS ORDERED: fentaNYL PF VIAL 100 MCG/2 ML VIAL IVP ONE (22:30)
[2020-08-05] MEDS ORDERED: ONDANSETRON PF 4 MG/2 ML VIAL. IVP ONE (22:30)
[2020-08-05 22:31] LABS: BACTERIA,URINE MODERATE /HPF (0-FEW); RBC,URINE 0 /HPF (0-2)
[2020-08-05 22:38] LABS: BASO % 1 % (0-3); EOS # 0.3 x10^3/uL (0.0-0.7); EOS % 8 % (0-3); HEMATOCRIT 36.8 % (36.0-47.0); HEMOGLOBIN 12.7 g/dL (12.0-15.5); LYMPH # 1.6 x10^3/uL (1.0-4.8); LYMPH % 39 % (24-48); MEAN CORPUSCULAR HEMOGLOBIN 33 pg (25-35); MEAN CORPUSCULAR HGB CONC 35 g/dL (31-37); MEAN CORPUSCULAR VOLUME 96 fL (79-100); MONO # 0.3 x10^3/uL (0.0-1.1); MONO % 7 % (0-9); NEUT # 1.9 x10^3/uL (1.8-7.7); NEUT % 45 % (31-73); PLATELET COUNT 283 x10^3/uL (140-400); RED BLOOD COUNT 3.82 x10^6/uL (3.50-5.40); RED CELL DISTRIBUTION WIDTH 13.1 % (11.5-14.5); WHITE BLOOD COUNT 4.2 x10^3/uL (4.0-11.0)
[2020-08-05 22:48] LABS: CREATININE 0.9 mg/dL (0.6-1.0); GFR 74.6; POTASSIUM 4.2 mmol/L (3.5-5.1)
[2020-08-05 22:54] LABS: ALBUMIN/GLOBULIN RATIO 1.3 (1.0-1.7); TOTAL BILIRUBIN 0.3 mg/dL (0.2-1.0)
== END 2020-08-05 22:45 | disposition left against medical advice (07) ==
LOC: ER 20:46
DX: R10.31 Right lower quadrant pain (principal); R11.2 Nausea with vomiting, unspecified; F41.9 Anxiety disorder, unspecified; F32.9 Major depressive disorder, single episode, unspecified; I10 Essential (primary) hypertension; K58.9 Irritable bowel syndrome, unspecified; Z90.49 Acquired absence of other specified parts of digestive tract; Z98.890 Other specified postprocedural states; Z98.51 Tubal ligation status; Z91.041 Radiographic dye allergy status; Z88.8 Allergy status to other drugs, medicaments and biological substances; Z88.5 Allergy status to narcotic agent
CPT/HCPCS: 36415; 80053; 81001; 81025; 83690; 85025; 87086; 99283

== ENCOUNTER 2021-03-03 06:09 | Emergency (ER) | payer MEDICAID ==
[~2021-03-03] VITALS: Ht 157.5 cm; Wt 62.6 kg
[~2021-03-03 06:09] MED LIST changes: +CYCL10TA19 PO; -CYCL10TA2 PO
[2021-03-03] MEDS ORDERED: ONDANSETRON PF 4 MG/2 ML VIAL. IVP ONE (07:30)
[2021-03-03] MEDS ORDERED: fentaNYL PF VIAL 100 MCG/2 ML VIAL IVP ONE (07:30)
[2021-03-03] MEDS ORDERED: IV NORMAL SALINE 1000ML BAG 1,000 ML IV ONE (07:30)
[2021-03-03] MEDS ORDERED: diphenhydrAMINE 50 MG/ML VIAL IVP ONE (07:30)
[2021-03-03] MEDS ORDERED: methylPREDNISolone SOD SUCC PF 125 MG/2 ML VIAL. IV ONE (07:30)
--- NOTE | 2021-03-03 08:34 | RAD ---
History: Vaginal bleeding in early . Transabdominal and transvaginal ultrasound of the pelvis. Comparison: None. LMP: Unsure Findings: The uterus is normal in size and appearance. The uterus measures8 cm x 6 cm x 5 cm. The endometrium m easures 0.8 cm and is unremarkable in appearance with no visualized intrauterine . The right ovary measures 3.3 cm x 3.0 cm x 1.7 cm. The left ovary measures 3.3 cm x 2.2 cm x 2.3 cm. The ovaries are normal in appearance with normal size follicles. There is a 2.[address] in the left ovary, normal for patient's age. Normal Doppler flow is seen in both ovaries. No adnex al masses or free fluid were identified. Impression: Unremarkable pelvic ultrasound. No sonographic findings of intrauterine . Recommend serial b eta hCGs and follow-up with [employer]. Electronically signed by: Tray Howell DO (03/03/2021 8:31 AM) [facility]
[2021-03-03 08:37] LABS: BASO % 1 % (0-3); EOS # 0.2 x10^3/uL (0.0-0.7); EOS % 3 % (0-3); HEMATOCRIT 37.6 % (36.0-47.0); HEMOGLOBIN 12.9 g/dL (12.0-15.5); LYMPH % 36 % (24-48); MEAN CORPUSCULAR HEMOGLOBIN 32 pg (25-35); MEAN CORPUSCULAR HGB CONC 34 g/dL (31-37); MEAN CORPUSCULAR VOLUME 92 fL (79-100); MONO # 0.4 x10^3/uL (0.0-1.1); MONO % 7 % (0-9); NEUT # 2.9 x10^3/uL (1.8-7.7); NEUT % 54 % (31-73); PLATELET COUNT 294 x10^3/uL (140-400); RED BLOOD COUNT 4.08 x10^6/uL (3.50-5.40); WHITE BLOOD COUNT 5.4 x10^3/uL (4.0-11.0)
--- NOTE | 2021-03-03 08:54 | EKG ---
[facility] [address] [place] [address] Test Date: 2021-03-03 Test Time: 08:06:19 Pat Name: DONAL LEE Department: Room: Gender: F Materials Coordinator: : 1990 Requested By: ADIA RUSSELL Order Number: [id number] Reading MD: Harmeet Fragoso Measurements Intervals [place] Rate: 97 P: 52 SD: 176 QRS: 50 QRSD: 84 T: 24 QT: 358 QTc: 459 Interpretive Statements SINUS RHYTHM NORMAL ECG RI6.02 Compared to ECG 03/12/2019 16:02:23 No significant changes Electronically Signed On 03-05-2021 16:17:45 WOOL BRUSHER by Harmeet Fragoso
[2021-03-03 08:58] LABS: ACETAMIN < 2.0 mcg/ml (10-30); ETHANOL < 10 mg/dL (0-10); SALIC 0.8 mg/dL (2.8-20.0)
[2021-03-03 08:59] LABS: CALCIUM 8.8 mg/dL (8.5-10.1); CREATININE 0.8 mg/dL (0.6-1.0); GFR 85.4; POTASSIUM 3.5 mmol/L (3.5-5.1)
[2021-03-03 09:00] LABS: ALBUMIN 3.7 g/dL (3.4-5.0); ALBUMIN/GLOBULIN RATIO 1.1 (1.0-1.7); TOTAL BILIRUBIN 0.3 mg/dL (0.2-1.0)
[2021-03-03] MEDS ORDERED: IOHEXOL 350 MG/ML 100 ML VIAL. IV ONE (09:15)
[2021-03-03] MEDS ORDERED: CONTRAST GIVEN. MC PRN (09:15)
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
--- NOTE | 2021-03-03 10:17 | RAD ---
EXAMINATION: CT Pulmonary Angiogram with IV contrast. CT of the abdomen and pelvis with IV contrast w as also performed. INDICATION: Reason: chest pain,RLQ abd pain / Spl. Instructions: omni 350 100ml / History: COMPARISON: CT abdomen pelvis from 05/21/2020 dating back to 03/21/2018 TECHNIQUE: Using helical technique, CT data from the thoracic inlet through the upper abdomen was obt ained during rapid IV contrast infusion. The examination was timed to the pulmonary arterial system t o generate a CT angiographic study. 3D MIPS, sagittal and coronal reformats were generated. FINDINGS: CHEST: Vascular: The study is diagnostic to the level of the segmental pulmonary arteries. There is adequate opacifica tion of pulmonary arteries. Pulmonary arteries: No evidence of acute or chronic pulmonary embolism. The pulmonary arteries are no rmal in size. Thoracic aorta: Normal in size. Pulmonary veins: Normal drainage into the left atrium. Coronary arteries: Normal origins. No detectable calcified coronary atherosclerosis. Systemic veins: Within normal limits. Heart: The heart is normal in size. No pericardial effusion. Lungs/Pleura: The pulmonary parenchyma appears within normal limits. No suspicious pulmonary nodules are visualized. No pleural effusion or focal pleural lesion. Mediastinum: No pathologic mediastinal or hilar adenopathy. A 7 mm hypoattenuating nodule in the left thyroid lobe. Axilla/Soft Tissue: No supraclavicular or axillary adenopathy. Regional soft tissues are within tiburcio l limits. Esophagus is unremarkable. Bones: No evidence of acute fractures or aggressive osseous lesions. ABDOMEN/PELVIS: Lines/Tubes/Devices/Hardware: None Liver: Normal in size and attenuation. Spleen: Unremarkable Kidneys: Symmetric nephrograms. Right renal cortex demonstrates areas of decreased attenuation. No pe rinephric inflammation. No nephrolithiasis or hydronephrosis. Ureters are unremarkable. Adrenal Glands: Unremarkable Pancreas: Unremarkable Gallbladder & Biliary System: Cholecystectomy. No significant biliary ductal dilation. Bowel and Mesentery: Bowel is normal in course and caliber. No evidence of obstruction or focal wall thickening. The appendix is normal. Mild colonic stool burden. Likely area of peristalsis within the mid transverse portion of the colon. The distal bowel is mostly decompressed with no significant claudy colonic inflammation. No free intra-abdominal air or free fluid. Mesenteric is normal in course and c aliber. Retroperitoneum: No retroperitoneal masses. Lymph Nodes: Similar nonpathologically enlarged periaortic lymph nodes with preserved fatty tracey. Urinary Bladder: Unremarkable Reproductive Organs: Anteverted uterus is normal in appearance with a small amount of hypoattenuating fluid within the endometrial canal likely represents normal physiologic changes, similar to priors. Ovaries are normal in appearance for patient's age. There is no free pelvic fluid. Bones: No acute or suspicious osseous abnormalities. Abdominal Wall: Unremarkable IMPRESSION: CHEST: 1. No pulmonary embolism. 2. No evidence of acute cardiopulmonary process. ABDOMEN/PELVIS: 1. Nonspecific decreased cortical attenuation in the right kidney. Correlation with urinalysis to exc lude developing pyelonephritis. 2. Otherwise, no acute abdominal or pelvic findings. PRQS compliance statement - One or more of the following individualized dose reduction techniques wer e utilized for this study: 1. Automated exposure control 2. Adjustment of the mA and/or kV according to patient size 3. Use of iterative reconstruction technique Electronically signed by: Tray Howell DO (03/03/2021 10:14 AM) [facility]
[2021-03-03 11:48] LABS: BARBITURATES NEG (NEG); BENZODIAZEPINES POS (NEG); CANNABINOIDS POS (NEG); COCAINE NEG (NEG); METHADONE NEG (NEG); OPIATES NEG (NEG); PHENCYCLIDINE NEG (NEG)
[2021-03-03 11:58] LABS: AMPHETAMINE/METHAMPHETAMINE POS (NEG); BILIRUBIN,URINE NEGATIVE (NEG); CLARITY,URINE CLEAR; COLOR,URINE YELLOW; NITRITE,URINE POSITIVE (NEG); PROTEIN,URINE NEGATIVE (NEG-TRACE); UROBILINOGEN,URINE 0.2 mg/dL (0.2 mg/dL)
[2021-03-03 12:03] VITALS: BP 161/104
[2021-03-03 12:13] LABS: BACTERIA,URINE MANY /HPF (0-FEW)
[2021-03-03 12:14] LABS: RBC,URINE OCC /HPF (0-2)
[2021-03-03] MEDS ORDERED: CIPR250T PO (12:23)
== END 2021-03-03 12:52 ==
LOC: ER 06:09
DX: N39.0 Urinary tract infection, site not specified (principal); R45.851 Suicidal ideations; R10.9 Unspecified abdominal pain; I10 Essential (primary) hypertension; Z20.822 Contact with and (suspected) exposure to COVID-19; K58.9 Irritable bowel syndrome, unspecified; G40.909 Epilepsy, unspecified, not intractable, without status epilepticus; Z88.0 Allergy status to penicillin; Z88.5 Allergy status to narcotic agent; Z88.6 Allergy status to analgesic agent; Z91.041 Radiographic dye allergy status
CPT/HCPCS: 36415; 71275; 74177; 76801; 80053; 80307; 80329; 81001; 81025; 83690; 83880; 84484; 84702; 85025; 86850; 86900; 86901; 87077; 87086; 87186; 87426; 93005; 96361; 96374; 96375; 99285; G0480; J1200; J2405; J2930; J3010; J7030; Q9967; U0003; U0005